=== PATIENT | male | born 1950 | race Caucasian/White ===

== ENCOUNTER → 2018-02-20 15:48 | Outpatient (CLI) | payer OTHER, SELFPAY ==
[2018-02-20 17:17] LABS: Calcium 9.6 mg/dL (8.4-10.2); Estimated Glomerular Filt Rate > 60.0 mL/min (>60); Glucose 87 mg/dL (80-110); HEMOLYSIS < 15 (0-50); Potassium 4.3 mmol/L (3.4-5.1); Sodium 140 mmol/L (137-145)
== END ==
PROVIDERS: Family Provider Internal Medicine; PCP Internal Medicine; Visit Provider Internal Medicine
DX: I10 Essential (primary) hypertension (principal); E29.1 Testicular hypofunction
CPT/HCPCS: 36415; 80048; 84403

== ENCOUNTER → 2018-04-23 08:03 | Outpatient (CLI) | payer OTHER, SELFPAY ==
[2018-04-23 10:28] LABS: Blood Urea Nitrogen 24 mg/dL (9-20); Calcium 9.8 mg/dL (8.4-10.2); Carbon Dioxide 28 mmol/L (22-32); Chloride 99 mmol/L (98-107); Estimated Glomerular Filt Rate > 60.0 mL/min (>60); Glucose 93 mg/dL (80-110); HEMOLYSIS < 15 (0-50); Potassium 4.5 mmol/L (3.4-5.1); Sodium 139 mmol/L (137-145)
== END ==
PROVIDERS: PCP Internal Medicine; Visit Provider Internal Medicine
DX: I10 Essential (primary) hypertension (principal)
CPT/HCPCS: 36415; 80048

== ENCOUNTER → 2018-06-05 09:57 | Outpatient (CLI) | payer OTHER, MEDICARE, SELFPAY ==
[2018-06-05 10:47] LABS: BUN Creatinine Ratio 28.3 (6-22); Blood Urea Nitrogen 34 mg/dL (9-20); Calcium 9.9 mg/dL (8.4-10.2); Carbon Dioxide 33 mmol/L (22-32); Chloride 101 mmol/L (98-107); Estimated Glomerular Filt Rate > 60.0 mL/min (>60); Glucose 95 mg/dL (80-110); HEMOLYSIS < 15 (0-50); Potassium 4.3 mmol/L (3.4-5.1); Sodium 144 mmol/L (137-145)
== END ==
PROVIDERS: PCP Internal Medicine; Visit Provider Internal Medicine
DX: I10 Essential (primary) hypertension (principal)
CPT/HCPCS: 36415; 80048

== ENCOUNTER → 2018-07-10 16:00 | Outpatient (CLI) | payer OTHER, MEDICARE, SELFPAY | PROVIDERS: Family Provider Internal Medicine; PCP Internal Medicine | DX: Z23 Encounter for immunization (principal) | CPT/HCPCS: 90471; 90662 ==

== ENCOUNTER → 2018-08-20 08:08 | Outpatient (CLI) | payer OTHER, SELFPAY ==
[2018-08-20 20:50] LABS: Aspartate Aminotransferase 39 IU/L (17-59); BUN Creatinine Ratio 24.5 (6-22); Blood Urea Nitrogen 27 mg/dL (9-20); Calcium 9.7 mg/dL (8.4-10.2); Carbon Dioxide 30 mmol/L (22-32); Chloride 99 mmol/L (98-107); Cholesterol 218 mg/dL (140-199); Estimated Glomerular Filt Rate > 60.0 mL/min (>60); Glucose 104 mg/dL (80-110); HDL Cholesterol 58 mg/dL (40-60); HEMOLYSIS < 15 (0-50); LDL Cholesterol Calculated 108 mg/dL (<100); Potassium 4.6 mmol/L (3.4-5.1); Sodium 141 mmol/L (137-145); Triglycerides 258 mg/dL (35-150); Uric Acid 8.2 mg/dL (3.5-8.5)
== END ==
PROVIDERS: Family Provider Internal Medicine; PCP Internal Medicine; Visit Provider Internal Medicine
DX: I10 Essential (primary) hypertension (principal); M10.9 Gout, unspecified; E78.00 Pure hypercholesterolemia, unspecified; E29.1 Testicular hypofunction
CPT/HCPCS: 36415; 80048; 80061; 84153; 84403; 84450; 84550

== ENCOUNTER → 2018-09-16 12:47 | Outpatient (CLI) | payer OTHER, SELFPAY ==
--- NOTE | 2018-09-16 | DI.MRI.S_ITS ---
PROCEDURE: MR LUMBAR SPINE WO CON INDICATIONS: LOW BACK PAIN TECHNIQUE: Noncontrast sagittal T1 spin echo and T2 fast echo, sagittal STIR, axial T1 and T2 fast spin echo through the lumbar spine. In cases with scoliosis, additional coronal T2 fast spin echo may be performed. COMPARISON: [facility], CR, XR LUMBAR SPINE 2 OR 3 VIEWS, 09/15/2018, 8:53. [facility] [place], CR, SPINE LUMB MIN 4VW, 08/17/2014, 9:29. [facility], MR, L-SPINE WITHOUT CONTRAST, 01/28/2010, 15:39. FINDINGS: Image quality: Excellent. Alignment and Curvature: Mild straightening of the normal lumbar lordosis. Trace retrolisthesis of L2 on L3, unchanged. Bone Marrow: Diffuse endplate degenerative signal changes, spurring and scattered small Schmorl's nodes involving inferior endplates of L1, L2, L3, L4 and L5 and and the superior endplates of L3 and L5. These findings appear new since prior study. However, no definite associated marrow edema. No acute vertebral body compression fractures. Spinal Cord: Conus medullaris terminates at the T12-L1 level. Visualized cord demonstrates normal signal and size. Paraspinous Soft Tissues: No paravertebral masses. There is diffuse progression of epidural lipomatosis from the level of L1-S1. L1-L2: Mild broad-based posterior disc bulge bilateral facet arthropathy, with mild dorsal epidural lipomatosis which is slightly increased since 01/28/10. Mild canal narrowing which demonstrates minimal progression. Mild partial effacement of the lateral recesses bilaterally which appear symmetric. Minimal bilateral foraminal narrowing, unchanged. L2-L3: Broad-based posterior disc bulge, bilateral facet arthropathy and ligamentum flavum hypertrophy. There is progressive dorsal epidural lipomatosis since the prior study with resultant moderate to severe canal narrowing which has also progressed since prior study. Moderate right and [id number] left foraminal narrowing, no interval change. L3-L4: Broad-based posterior disc bulge abuts arthropathy. Ligamentum flavum hypertrophy. Dorsal epidural lipomatosis present and there is moderate to severe canal narrowing, progressed since the prior study. Mildly asymmetric (left greater than right) partial effacement of both lateral recesses which appears stable to minimally progressed. Moderate left foraminal narrowing. Mild right foraminal stenosis, no interval change L4-L5: Broad-based posterior disc bulge, bilateral facet arthropathy and ligamentum flavum hypertrophy. There is also progressive dorsal epidural lipomatosis which has progressed since prior study. There is moderate canal narrowing, which is slightly worsened. Partial effacement of the lateral recesses which appears mildly asymmetric, right greater than left as before. Moderate left foraminal narrowing which is minimally progressed. Mild to moderate right foraminal stenosis which is unchanged L5-S1: Mild broad-based posterior disc bulge and bilateral facet arthropathy. There is circumferential epidural lipomatosis with severe narrowing of the central canal. There is also lipomatous effacement of the lateral recesses, a new finding. [id number] left and moderate right foraminal stenoses which appear unchanged IMPRESSION: Interval progression of multilevel lumbar disc degeneration and facet arthropathy since 01/28/10. Diffuse progressive central canal and bilateral subarticular narrowing, as specified above by spinal level, in large part related to increased epidural lipomatosis. Associated multilevel deformity of the cauda equina/nerve roots related to canal narrowing. Slight progression in left L4-L5 foraminal narrowing. Remaining bilateral foraminal stenoses appear grossly unchanged as above. Dictated by: Ren Villa M.D. on 09/16/2018 at 14:32 Approved by: Ren Vilal M.D. on 09/16/2018 at 15:17
== END ==
PROVIDERS: PCP Internal Medicine; Visit Provider Orthopaedic Surgery
DX: M54.5 Low back pain (principal); M51.36 Other intervertebral disc degeneration, lumbar region; M51.37 Other intervertebral disc degeneration, lumbosacral region; M47.816 Spondylosis without myelopathy or radiculopathy, lumbar region; M48.061 Spinal stenosis, lumbar region without neurogenic claudication; M48.07 Spinal stenosis, lumbosacral region
CPT/HCPCS: 72148

== ENCOUNTER → 2018-10-02 08:42 | Outpatient (CLI) | payer OTHER, SELFPAY ==
[2018-10-02 09:37] LABS: Add Manual Diff / Slide Review NO; Basophils Percent Auto 1.4 % (0-2); Eosinophils Percent Auto 2.6 % (2-4); Hematocrit 39.3 % (41-53); Hemoglobin 13.6 g/dL (13.5-17.5); Lymphocytes Percent Auto 28.7 % (25-40); Mean Corpuscular HGB Conc 34.5 % (30-36); Mean Corpuscular Hemoglobin 32.3 PG (26-34); Mean Corpuscular Volume 93.6 fL (80-100); Monocytes Percent Auto 10.7 % (3-14); Neutrophils Absolute Auto 2600 /uL (1500-7000); Neutrophils Percent Auto 56.6 % (50-75); Platelet Count 305 X10^3/uL (150-400); Red Cell Distribution Width 13.6 % (11.6-14.8); White Blood Cell Count 4.6 X10^3/uL (4.5-11.0)
[2018-10-02 09:47] LABS: Hemoglobin A1C% w Est Avg Glu 5.3 % (4.0-6.0)
[2018-10-02 10:57] LABS: Alanine Aminotransferase 39 IU/L (21-72); Albumin 4.6 g/dL (3.5-5.0); Albumin Globulin Ratio 1.5 (1.0-2.8); Alkaline Phosphatase 55 U/L (38-126); Aspartate Aminotransferase 38 IU/L (17-59); Bilirubin Total 1.1 mg/dL (0.2-1.3); Blood Urea Nitrogen 36 mg/dL (9-20); Calcium 9.6 mg/dL (8.4-10.2); Carbon Dioxide 30 mmol/L (22-32); Chloride 101 mmol/L (98-107); Cholesterol 254 mg/dL (140-199); Estimated Glomerular Filt Rate > 60.0 mL/min (>60); Glucose 110 mg/dL (80-110); HDL Cholesterol 50 mg/dL (40-60); HEMOLYSIS < 15 (0-50); Potassium 5.1 mmol/L (3.4-5.1); Sodium 145 mmol/L (137-145); Total Protein 7.6 g/dL (6.3-8.2); Triglycerides 469 mg/dL (35-150)
[2018-10-02 11:14] LABS: Free T3, Triiodothyronine Free 3.42 pg/mL (2.77-5.27); Free T4, Direct Thyroxine 0.97 ng/dL (0.78-2.19)
[2018-10-02 11:27] LABS: Prostate Specific Antigen Scrn 1.07 ng/mL (0.1-4.0)
[2018-10-02 11:28] LABS: Thyroid Stimulating Hormone 2.59 uIU/mL (0.47-4.68)
[2018-10-02 11:31] LABS: Ferritin 32.8 ng/mL (17.9-464)
[2018-10-02 13:30] LABS: Creatine Kinase 125 U/L (55-170)
[2018-10-02 13:41] LABS: CKMB % Relative Index 2.7 % (1.5-5.0); Creatine Kinase MB 3.39 ng/mL (<2.37)
[2018-10-03 14:29] LABS: Homocysteine 8.5 umol/L (< 11.4)
== END ==
PROVIDERS: PCP Internal Medicine; Visit Provider Naturopath
DX: Z82.49 Family history of ischemic heart disease and other diseases of the circulatory system (principal)
CPT/HCPCS: 36415; 80053; 80061; 82550; 82553; 82728; 83036; 83090; 84439; 84443; 84481; 85025; G0103

== ENCOUNTER 2018-12-30 14:44 | Outpatient (CLI) | payer OTHER, SELFPAY ==
[2018-12-30] VITALS (9 sets, daily range): BP systolic 113–187; BP diastolic 76–96; PULSE 61–69; RESP 16–18; TEMP 36.2; O2SAT 95–100
--- NOTE | 2018-12-30 14:47 | DI.RAD.S_ITS ---
PROCEDURE: PAIN L/S FACET INJ/BLK 1ST TOO COMPARISON: None. INDICATIONS: SPONDYLOSIS FINDINGS: There are bilateral L4-5 and L5-S1 needle tip localizations at the facet joints at each of these levels 4 facet joint injection. IMPRESSION: Successful lower lumbar and lumbosacral junction bilateral facet needle tip localizations for facet injections at each of these 4 levels. Dictated by: Phong Solis M.D. on 12/30/2018 at 16:33 Approved by: Phong Solis M.D. on 12/30/2018 at 16:34
[2018-12-30] MEDS: MIDAZOLAM 5 MG/5 ML VIAL IV (15:31)
[2018-12-30] MEDS: fentaNYL 100 MCG/2 ML INJ 50 MCG IV (15:32)
[2018-12-30] MEDS: BETAMETHASONE 30 MG/5 ML MDV 12 MG INJ (15:36)
[2018-12-30] MEDS: LIDOCAINE 1% 20 ML INJ 10 ML INJ (15:36)
[2018-12-30] MEDS: IOPAMIDOL 15 ML VIAL 3 ML INJ (15:36)
[2018-12-30] MEDS: BUPIVACAINE 0.5% (PF) VIAL 2 ML INJ (15:36)
--- NOTE | 2018-12-30 15:41 | PC.NURSE ---
ASSISTING PT OFF TABLE AND TRANSPORTING TO POST PROC AREA IN STABLE CONDITION
--- NOTE | 2018-12-30 15:48 | P.PCN_ITS ---
Procedures Date/Time Date of procedure: 12/30/18 Time of procedure: 15:46 General Procedure description: PREOP DIAGNOSIS 1. FACET ARTHROPATHY 2. AXIAL LBP 3. MULTILEVEL DDD POST OP DIAGNOSIS 1. FACET ARTHROPATHY 2. AXIAL LBP 3. MULTILEVEL DDD PROCEDURES 1. FLUORSCOPICALLY GUIDED CONTRAST CONTROLLED FACET JOINT INJECTIONS BILATERAL L4/5, L5/S1 PHYSICIAN: Primitivo Lynn, DO INDICATIONS Jose De Jesus is referred by Dr. Bright for treatment of Axial LBP FINDINGS Multilevel Facet Arthropathy with Clinically significant axial LBP DESCRIPTION OF PROCEDURE Fluoroscopically guided, contrast-controlled bilateral L4/5, L5/S1 facet joint injections. Following denial of allergy and review of potential side effects and complications, including, but not necessarily limited to, infection, allergic reaction, local tissue breakdown, stroke, temporary or permanent nerve injury, paralysis, and possible , the patient indicated that the patient understood and agreed to proceed. An informed consent document was signed by the patient, witnessed by a nurse, and placed in the patient's chart. Additionally, other treatment options including medications, modalities, and physical therapy were reviewed with the patient. After review of previous anaesthesic history and IV conscious sedation the patient was deemed safe to proceed with todays procedure with IV conscious sedation as ASA class II designation. Safety time-out was performed to confirm patient ID, procedure to be performed and site of procedure. IV sedation was accomplished with a combination of 5mg of Versed and 50mcg Fentanyl was administered by the RN after DO order, titrated to patient comfort during the course of the procedure while the patient remained responsive to all verbal commands In the prone position, following sterile prep and drape of the lumbar region, the posterior aspect of the L4/5, L5/S1 facet joints were identified fluoroscopically. The skin was anesthetized via a 25-gauge 1.5-inch needle with 1% lidocaine solution into the corresponding facet joints. At this point, a 22- gauge 3.5-inch spinal needle was atraumatically introduced and advanced under fluoroscopic guidance into the corresponding facet joints. Following negative aspiration, injections of approximately 0.2-cc of Isovue 200 confirmed interarticular placement without vascular uptake. The identical procedure was then performed at the L4/5, L5/S1 facet joints on the left. Radiological data, including multiple fluoroscopic views of the lumbosacral spine, reveal a spinal needle at the L4/5, L5/S1 facet joints bilaterally. Subsequent views show flow of contrast material both superiorly and inferiorly within the joint space without vascular or intrathecal uptake. At this point, a total of 0.5 cc including a mixture of 0.25cc Marcaine and 0.25cc betamethasone was injected without complication into each of the corresponding facet joints. The patient tolerated the procedure well without signs or symptoms of complications prior to transfer to the recovery area continued monitoring without incident. The patient was then transferred to the recovery area where they were observed for an appropriate period of time after the injection. The patient reported a VAS score of 7 prior to the procedure and a post- procedure VAS of 0. Total Fluoroscopy Time: 20.3 seconds Total Conscious Sedation Time: 24min POST OP INSTRUCTIONS The patient was provided a Pain Log to continue to record their response to the target-specific procedure prior to follow-up visit with their referring physician. Additionally, specific post-injection care instructions and a contact number to our office were provided if concerns arise regarding possible complications associated with the procedure are suspected. Primitivo Lynn DO Complications: none
--- NOTE | 2018-12-30 15:58 | PC.NURSE ---
Pt returned from procedure a little drowsy but alert, able to move from w/c to chair with minimal assist. Resumed monitoring from Olesya RICHARD.
--- NOTE | 2018-12-31 16:44 | PC.NURSE ---
Follow up post procedure call made. Patient reports feeling great. He denied any complaints and reported it was a good experience.
== END 2018-12-30 16:51 ==
LOC: RAD 14:47
PROVIDERS: PCP Internal Medicine; Visit Provider Physical Medicine & Rehabilitation
DX: M47.817 Spondylosis without myelopathy or radiculopathy, lumbosacral region (principal); M47.816 Spondylosis without myelopathy or radiculopathy, lumbar region; M51.37 Other intervertebral disc degeneration, lumbosacral region; M51.36 Other intervertebral disc degeneration, lumbar region; M54.5 Low back pain; M48.061 Spinal stenosis, lumbar region without neurogenic claudication
CPT/HCPCS: 64493; 64494; 99152; J0702; J2250; J3010

== ENCOUNTER → 2019-07-02 09:05 | Outpatient (CLI) | payer MEDICARE, OTHER, SELFPAY ==
[2019-07-02 10:07] LABS: Add Manual Diff / Slide Review NO; Basophils Absolute Auto 100 /uL (0-100); Basophils Percent Auto 1.1 % (0-2); Eosinophils Absolute Auto 200 /uL (0-450); Eosinophils Percent Auto 2.7 % (2-4); Hematocrit 44.4 % (41-53); Hemoglobin 15.1 g/dL (13.5-17.5); Lymphocytes Absolute Auto 1600 /uL (1100-4500); Lymphocytes Percent Auto 29.1 % (25-40); Mean Corpuscular HGB Conc 33.9 % (30-36); Mean Corpuscular Hemoglobin 32.4 PG (26-34); Mean Corpuscular Volume 95.4 fL (80-100); Monocytes Absolute Auto 600 /uL (0-900); Monocytes Percent Auto 10.5 % (3-14); Neutrophils Absolute Auto 3200 /uL (1500-7000); Neutrophils Percent Auto 56.6 % (50-75); Platelet Count 271 X10^3/uL (150-400); Red Blood Cell Count 4.66 X10^6/uL (4.5-5.9); Red Cell Distribution Width 12.9 % (11.6-14.8); White Blood Cell Count 5.7 X10^3/uL (4.5-11.0)
[2019-07-02 10:19] LABS: Carbon Dioxide 28 mmol/L (22-32); Chloride 99 mmol/L (98-107); HEMOLYSIS 27 (0-50); Potassium 4.8 mmol/L (3.4-5.1); Sodium 140 mmol/L (137-145)
== END ==
PROVIDERS: PCP Internal Medicine; Visit Provider Orthopaedic Surgery
DX: M16.10 Unilateral primary osteoarthritis, unspecified hip (principal); Z01.818 Encounter for other preprocedural examination; Z01.812 Encounter for preprocedural laboratory examination
CPT/HCPCS: 36415; 80051; 85025; 93005; 93010

== ENCOUNTER 2019-07-27 07:45 | Inpatient (IN) | payer MEDICARE, OTHER, SELFPAY ==
[2019-07-24 07:33] VITALS: BMI 29.6
[2019-07-27] VITALS (14 sets, daily range): BP systolic 99–168; BP diastolic 50–98; PULSE 63–91; RESP 10–20; TEMP 35.8–37.2; O2SAT 94–100; BMI 29.6
--- NOTE | 2019-07-27 | PATH_ITS ---
[facility] Accession Number: [id number] . 01 Material submitted: . hip - RIGHT HIP/BURSA LOOSE BODY . 02 Diagnosis: Right Hip/Bursa, Loose Body, Removal: Encapsulated fat necrosis. No evidence of neoplasia. MRV 07/29/2019 1320 Local . 02 Electronically signed: . Shaye Law MD, Pathologist NPI- [id number] . 01 Gross description: . Received in formalin, labeled loose body bursa right hip, is a ochoa-white firm rubbery nodule (2.5 x 1.7 x 1.0 cm) with a ochoa-yellow soft oily cut surface. The exterior is inked blue. Mortgage Protection Specialist serial sections submitted in cassette A1. ([id number]) /MRV 07/28/2019 1534 Local . 02 Pathologist provided ICD-10: M16.11 . 02 CPT . 905173 Performed at: 01 [facility] [address], [place], [place] [id number] MD Shabbir Gardiner MD Phone: [phone] Performed at: 02 [facility] [address] [place], [place] [id number] MD Shaye Law MD Phone: [phone]
--- NOTE | 2019-07-27 06:00 | DI.RAD.S_ITS ---
PROCEDURE: XR PELVIS 1-2V INDICATIONS: post op films TECHNIQUE: 1 view of the lower pelvis acquired. COMPARISON: [facility] [place] [facility], CR, XR PELVIS WITH LATERAL HIP RIGHT, 06/17/2019, 14:51. FINDINGS: Bones: Patient is status post total right hip arthroplasty, with hardware components in expected positions. The hip joint appears congruent. The visualized bony structures appear intact. Soft tissues: Overlying postoperative changes are noted. No suspicious soft tissue densities. IMPRESSION: Status post right total hip arthroplasty without hardware complication. Dictated by: Isauro Chisholm M.D. on 07/27/2019 at 12:50 Approved by: Isauro Chisholm M.D. on 07/27/2019 at 12:51
--- NOTE | 2019-07-27 07:50 | PM.PREOP ---
Pre-operative Note Interval Note History & Physical reviewed/Exam performed by Physician: Yes Changes to H&P: No
[2019-07-27] MEDS: PREGABALIN 75 MG CAPSULE PO (08:35)
[2019-07-27] MEDS: ACETAMINOPHEN 325 MG TABLET 975 MG PO ×3 (08:35→20:26)
[2019-07-27] MEDS: MELOXICAM 7.5 MG TABLET 15 MG PO (08:36)
[2019-07-27] MEDS: LACTATED RINGERS 1,000 ML 42 ML IV ×2 (08:39→11:06)
[2019-07-27] MEDS: CEFAZOLIN 2 GM/100 ML FROZ.PIGGY IV ×2 (09:52→18:26)
[2019-07-27] MEDS: TRANEXAMIC ACID 1,000 MG VIAL 1000 MG INJ ×2 (10:10→11:05)
--- NOTE | 2019-07-27 10:32 | SUR.OPER ---
Lateral on padded OR bed. Gel axillary roll. Arms secured on padded armboard with pillow supporting top arm. Padded hip positioner braces x4 - anterior and posterior chest and pelvis. Additional gel pad used anterior pelvis. Gel pad under bottom leg from knee to foot and secured with tape over sheet.
[2019-07-27] MEDS: ROPIVACAINE 0.5% PF 5 MG/ML 20ML VIAL 60 ML INJ (10:39)
[2019-07-27] MEDS: MORPHINE 4 MG/ML INJ INJ (10:40)
[2019-07-27] MEDS: KETOROLAC 30 MG/ML VIAL IV (10:40)
--- NOTE | 2019-07-27 11:58 | P.OP_ITS ---
Operative Date/Time/Diagnoses Date of procedure: 07/27/19 Time of procedure: 11:58 Pre-op diagnosis: Right hip degenerative joint disease Post-op diagnosis: same Procedure & Clinicians Procedure: Right total hip arthroplasty (CPT code 41277 with recruitment and outreach assistant) Indications: Patient is an 69-year-old male with severe right hip DJD. The patient has pain with activities and at rest, limited ambulation and activity tolerance, difficulties with ADLs, and failure of conservative treatment. We have discussed the nature of condition, treatment options, risks and benefits, and patient elects to proceed with total hip arthroplasty and gives informed consent. Surgeon: Ruben Fatima Full Stack Java Developer: Tam Chahal Anesthesia Type: General and Spinal Operative Notes Closure Type: primary Specimen(s): none sent Prosthetic devices, grafts, tissues, transplants, or devices: Acetabulum: Ingram and Nephew R3 acetabular component size 54 mm Femoral component: Ingram and Nephew Anthology stem size 8 with standard offset Femoral head: 36 mm + 0 Oxinium Estimated Blood Loss (mL): 100 Procedure in detail: After satisfaction induction of anesthetic, and administration of IV antibiotics, the patient was positioned in the lateral decubitus position with all bony prominences well padded and pelvic position secured using a hip biometric fingerprinting technician positioning device. Right hip and lower extremity prepped and draped in the usual sterile fashion, 1st dose of intravenous tranexamic acid was administered, then a longitudinal incision was created centered over the greater trochanter and carried sharply through the skin and subcutaneous tissues down to the fascia bro which was divided longitudinally and retracted with a Charnley retractor. Upon entry into the trochanteric bursal space and approximately 1 x 2 cm ovoid soft tissue mass was encountered. This was not attached to any surrounding tissues and was thus removed and sent to pathology. External rotators visualized, cut, tagged, and retracted posteriorly, then the capsule was cut in a T-type fashion with the corners tagged and retracted. Hip was dislocated and femoral neck cut made according to preoperative templating. Acetabular retractors then placed, and the acetabular labrum and osteophytes were excised. The acetabulum was then sequentially reamed to 53 mm with an excellent circumferential ream and fit with the trial. The trial component was removed and a permanent size 54 mm Ingram and Nephew R3 acetabular component was selected, positioned, and impacted with satisfactory position and fixation achieved. Permanent liner was then inserted with the elevated lip directed posteriorly. Soft tissue then removed off the lateral femoral neck in the lateral neck was entered using a box osteotome. T-handled reamers placed down the canal followed by sequential broaching to 8 with the final broach left in place for trial reduction which demonstrated excellent leg length, range of motion, and stability characteristics with a 36 mm +0 trial ball. The trial and broach were removed, and a permanent size 8 Ingram and Nephew Anthology stem was selected and inserted with excellent position and fixation achieved. Another trial reduction yielded the above characteristics so the trial ball was exchanged for a permanent 36 mm +0 Oxinium ball. The hip was irrigated and reduced and excellent leg length range of motion and stability characteristics were achieved and maintained. Periarticular tissues were infiltrated with ropivacaine, morphine, and Toradol. The hip was copiously irrigated, and the capsule repaired with #2 Ethibond, and the piriformis was repaired back to the greater trochanter with the same. Fascia bro closed with interrupted #1 Ethibond sutures, and the subcutaneous tissues were closed in 2 layers of 0 Vicryl and 2 0 Vicryl. Skin was closed with ellie and sterile dressings applied. Second dose of tranexamic acid was administered intravenously, and the anesthetic was terminated. Complications: none Post-operative Condition: stable Disposition: PACU Plan for aftercare: Patient will be admitted to the acute care tabor, and anticipate discharge on postop day 1 with follow-up in office in 10-14 days. Outpatient physical therapy will be arranged and patient will continue to observe posterior hip precautions. Patient will continue use of postoperative Lovenox for 10 days postop.
[2019-07-27] MEDS: LACTATED RINGERS 1,000 ML 125 ML IV ×2 (13:08→20:32)
--- NOTE | 2019-07-27 13:19 | PC.ADMIT ---
[email or web address] [facility] Admission Note: The patient,Jose De Jesus Richard,69 y/o, was given written information regarding hospital policies, unit procedures and contact persons. Patient's smoking status: Never smoker. Vital Signs - 8 hr 07/27/19 08:23 07/27/19 11:27 07/27/19 11:32 Temperature 97.1 F L 98.9 F Pulse Rate 78 69 67 Respiratory Rate 16 12 10 L Blood Pressure 168/84 H 99/50 L 137/84 Pulse Oximetry 96 97 97 07/27/19 11:37 07/27/19 11:42 07/27/19 11:47 Temperature Pulse Rate 66 70 69 Respiratory Rate 13 19 20 Blood Pressure 137/84 131/77 145/85 H Pulse Oximetry 97 99 97 07/27/19 12:00 07/27/19 12:30 07/27/19 13:00 Temperature 96.5 F L 97.8 F 97.9 F Pulse Rate 63 91 H 64 Respiratory Rate 16 16 16 Blood Pressure 132/98 H 123/78 119/73 Pulse Oximetry 100 100 100 POST-OP ADMIT: PATIENT AWAKE, ALERT, CONVERSANT. SAT 97-100% ON RA. DESATS WHEN ASLEEP IN PACU. WILL MONITOR AND WEAN OFF O2. CONT PULSE OX IN PLACE. SCD'S ON. VSS. BULKY SURGICAL DRSG TO RIGHT HIP CDI. BL PPP. NOW ABLE TO WIGGLE TOES, BUT STILL NO SENSATION BELOW HIP LEVEL. S/P DURAMORPH SPINAL ANESTHESIA. CALL LIGHT IN REACH, INSTRUCTED TO CALL FOR NEEDS. ATE LUNCH, NO N/V. PROVIDED URINAL.
[2019-07-27] MEDS: OXYCODONE/ACETAMINOPHEN 5/325 TABLET 1 TAB PO ×2 (14:38→20:26)
--- NOTE | 2019-07-27 16:37 | PC.NURSE ---
Addendum entered by Pia Dao R.N. 07/27/19 22:35: Patient to remain without dizziness or nausea. Tolerating fluid intake. VSS and afebrile. Placed on O2 at 1L via NC due to desaturation while asleep to 88-89%. Skin warm, pink, and dry. Addendum entered by Pia Dao R.N. 07/27/19 18:57: 1800 Patient sitting up in chair, noted to become clammy, slight dizziness and nausea. BG check, 146 mg/dl and VSS. Zofran admin IV as ordered. Upon returning to bed, patient states symptoms resolved. VSS, warm, pink and continue on RA. IVF infusing and call light within reach. Will cont. to monitor patient closely. Original Note: Angeline shift note: Awake, alert, and pleasant. Pain controlled with Percocet as ordered. States pain 2/10, which is tolerable for patient. Dr. Fatima and Physical Therapy at bedside. CMS intact to LLE. SCDs in place. Dressing to Left hip, CDI. O2 sat 96% on RA. Discussed posterior hip precautions, IS at bedside, call light within reach.
--- NOTE | 2019-07-27 17:18 | PT.IIE ---
Current Diagnoses Unilateral primary osteoarthritis, right hip (07/27/19) Surgery Performed Operation Date: 07/27/19 09:45 Actual Procedures p Total Hip Arthroplasty(Right) - Ruben Fatima MD Surgical History (Last Updated 07/24/19 @ 07:47 by Anuja Tovar, RN) H/O vasectomy (Acute) History of arthroplasty of right knee (Acute 07/10/16) Hx of cholecystectomy (Acute) S/P surgical manipulation of knee joint (Acute 10/12/16) S/P trigger finger release (Acute) Status post knee surgery Status post laparoscopic cholecystectomy Medical History (Last Updated 07/24/19 @ 07:41 by Anuja Tovar RN) Clavicle fracture (Acute) HLD (hyperlipidemia) (Acute) Paroxysmal A-fib (Acute) Physical Therapy Inpatient Evaluation/Re-Eval M1 PT/OT-IP Prior Functional Status Start: 07/27/19 16:58 Freq: NEEDED Status: Active Protocol: Document 07/27/19 16:59 IJS (Rec: 07/27/19 17:17 IJS [id number]) Medical Review Prior Functional Status Medical History Reviewed Yes Communication Amharic Mobility and Gait Indpendent without assistive device Activities of Daily Living and IADL's Independent Prior Functional Level (Other details) Active Social History Household Members significant other Living Arrangements House Number of Floors (Floors) Two Floors Number of Stairs To Enter/Railing? 2 steps into home with rail and 10 steps upstairs with rail Home Environment Standard Height Toilet Home Equipment Front Wheel Walker,Straight Cane Employment Status Retired M2 PT-IP Current Condition Start: 07/27/19 16:58 Freq: NEEDED Status: Active Protocol: Document 07/27/19 16:59 IJS (Rec: 07/27/19 17:17 IJS [id number]) Physical Therapy Current Condition Current Condition Evaluation Date 07/27/19 Treatment Diagnosis Right MARY ANNE - Posterior Onset Date 07/27/19 Precautions Posterior Hip Precautions No Hip Flexion > 90 degrees,No Hip Internal Rotation,No Hip Adduction Weight Bearing Status Weight Bearing Status Weight Bear as Tolerated M3 PT-IP Subjective Start: 07/27/19 16:58 Freq: NEEDED Status: Active Protocol: Document 07/27/19 16:59 IJS (Rec: 07/27/19 17:17 IJS [id number]) Subjective Physical Therapy Visit Type Type Initial Evaluation Visit Start Time 16:30 Visit Stop Time 16:53 Total Visit Minutes 23 Physical Therapy Visit Comments Patient Comments What kind of aerobic exercise machine can I use. Discussed precautions and not returning to the gym too quickly. Patient Goals Be able to golf and play tennis again without pain Therapy Pain Assessment Pain When Pain Assessed During Mobility Pain Present Pain Present Denied Pain M4 PT-IP Mobility and Gait Start: 07/27/19 16:58 Freq: NEEDED Status: Active Protocol: Document 07/27/19 16:59 IJS (Rec: 07/27/19 17:17 IJS [id number]) PT-Bed Mobility Assessment Supine to Sit Supine to Sit Contact Guard Assistance,1 Person Assistance Scooting Scooting to Edge of Bed Standby Assistance PT-Transfer Assessment Sit to and From Stand Sit to and from Stand Contact Guard Assistance, Minimal Assistance Equipment Transfer Assistive Device Gait Belt,Front Wheeled Walker Orthotic/Prosthetic Devices or Brace: No Transfers Transfer Destination Chair Transfer Technique Stand Step Pivot Transfer Ability Level of Assist Contact Guard Assistance Comments Mobility Comments Out of bed to his right side. Gait Assessment Gait Gait Assistance Required: Contact Guard Assist Distance (Feet) 40 Able to Maintain Weight Bearing Status Yes During Gait Assistive Devices Assistive Device Gait Belt,Front Wheeled Walker Orthotic/Prosthetic Devices or Brace: No Gait Deviations General Gait Pattern Step-to Gait Factors Limiting Gait Function Factors Limiting Gait Function Pain,Poor Balance Comments Gait Comments One slight loss of balance when first turning around in the room toward his left side. Stair Climbing Assessment Comments Stair Climbing Comments Is anxious to practice stairs tomorrow, discussed step sequencing. PT-Balance Assessment Sitting Balance and Reactions Static Sitting Balance Ability Normal Dynamic Sitting Balance Ability Normal Standing Balance and Reactions Static Standing Balance Ability Good Dynamic Standing Balance Ability Good M5 PT-IP Objective Assessments Start: 07/27/19 16:58 Freq: NEEDED Status: Active Protocol: Document 07/27/19 16:59 IJS (Rec: 07/27/19 17:17 IJS [id number]) Orientation Orientation/Cognition Level of Alertness Alert Orientation Name,Age,Birthday,Month,Date, Year,Day of Week,Place, Situation Language Function Ability No Deficits Noted Memory Description No Deficits Noted Gross Range of Motion Upper Extremity ROM Assessment Within Functional Limits Lower Extremity ROM Assessment Right Impaired Impairments Posterior hip precaustions Strength Upper Extremity Strength Assessment Within Functional Limits Lower Extremity Strength Assessment Within Functional Limits Comments Strength Comments Good quadset and able to actively do heel slides, short arch quad and abduction. Coordination Assessment Gross Coordination Gross Coordination WNL Sensation Assessment Sensation Gross Sensation WNL Comments Sensation Comments Reports all feeling back in his leg. Muscle Tone Muscle Tone WNL Yes M6 PT-IP Treatment Start: 07/27/19 16:58 Freq: NEEDED Status: Active Protocol: Document 07/27/19 16:59 IJS (Rec: 07/27/19 17:17 IJS [id number]) Physical Therapy Treatment Exercises Exercises Ankle Pumps,Quad Sets,Heel Slides,Short Arc Quads Education Education Provided Precautions,Weight Bearing Status,Post-Op Packet,Safety M7 PT-IP Assessment and Plan Start: 07/27/19 16:58 Freq: NEEDED Status: Active Protocol: Document 07/27/19 16:59 IJS (Rec: 07/27/19 17:17 IJS [id number]) PT Summary Assessment and Plan Potential Rehabilitation Potential Excellent Status of Condition at Evaluation Stable Summary Impairments Pain,ROM,Balance Assessment Summary Day of surgey right MARY ANNE tolerated activity well anticipate will do fine with stair training tomorrow and plans to return home in the early afternoon. Vitals stable with 02 sat 96% and HR 70bpm after gait/mobility. Goals Bed Mobility Goal Standby Assistance Transfer Goal Standby Assistance Gait Goal Standby Assistance Gait Distance 150 Other Goals Safe for up/down stairs with rail. His significant other is capible and able to assist if needed. Days to Meet Goals 2 Frequency of Treatment Frequency Of Treatment Twice a Day Treatment Plan Physical Therapy Treatment Plan Bed Mobility Training,Transfer Training,Gait Training, Therapeutic Exercise,Balance Retraining,Post Op Education, Discharge Planning,Hot or Cold Pack Other Recommendations and Next Treatment Progress with stair training, Focus caregiver training as needed. she is going to bring in his walker tomorrow for inspection , sizing. Recommendations To Nursing Amount of Assist Needed 1 Person Assist Discharge Recommendations PT Discharge Recommendations Home with Assistance, Outpatient PT
[2019-07-27] MEDS: ONDANSETRON 4 MG/2 ML INJ IV (17:34)
[2019-07-27] MEDS: ASPIRIN EC 81 MG TABLET PO (20:26)
[2019-07-27] MEDS: hydrOXYzine pamoate 25 MG CAPSULE PO (20:26)
[2019-07-28] MEDS: HYDROCODONE/ACET 5/325 TABLET 1 TAB PO (00:34)
[2019-07-28 00:38] VITALS: BP 162/94; PULSE 72; RESP 16; TEMP 36.6; O2SAT 100
[2019-07-28] MEDS: CEFAZOLIN 2 GM/100 ML FROZ.PIGGY IV (02:01)
--- NOTE | 2019-07-28 03:46 | PC.NURSE ---
Pt VSS, lung sounds clear bilaterally. Pt has 5/10 pain, medicated w/ [place] 5/325 Q4. Pt desats while sleeping. 1 liter oxygen applied while sleeping O2 sats 99%. Pt CMS intact, dressing is clean/dry and intact. IS encouraged, SCD's applied. Call light within reach.
[2019-07-28] MEDS: hydrOXYzine pamoate 25 MG CAPSULE PO (05:00)
[2019-07-28] MEDS: OXYCODONE/ACETAMINOPHEN 5/325 TABLET 1 TAB PO ×3 (05:00→12:35)
[2019-07-28 05:22] VITALS: BP 150/74; PULSE 66; RESP 16; TEMP 36.4; O2SAT 98
[2019-07-28 05:41] LABS: Hematocrit 36.6 % (41-53); Hemoglobin 12.3 g/dL (13.5-17.5)
[2019-07-28 07:50] VITALS: BP 154/83; PULSE 73; RESP 16; TEMP 36.5
--- NOTE | 2019-07-28 07:56 | PM.PNPO.1 ---
Subjective Subjective Date Patient Seen: 07/28/19 Time Patient Seen: 07:57 Interval history: Pain is moderate. Denies fever chills. No nausea vomiting. Up walking in the room yesterday. He was able to urinate on his own. Patient has two steps in his house. He does have assistance at home. Exam Vital Signs (past 8 hours): - 07/28/19 00:38 07/28/19 05:22 Temperature 97.8 F 97.6 F Pulse Rate 72 66 Respiratory Rate 16 16 Blood Pressure 162/94 H 150/74 H Pulse Oximetry 100 98 Oxygen Delivery Method Room Air Oxygen Flow Rate 0 Narrative Exam Narrative: 69-year-old male resting comfortably in bed in no apparent distress. Right hip dressing is clean, dry and intact. Motor function is intact distal bilateral lower extremities. Sensation grossly intact to light touch bilateral lower extremities both legs are warm and dry. SCDs are on and functioning. Objective Labs Result Diagrams: 07/28/19 05:17 Labs: Laboratory Results - last 24 hr 07/28/19 05:17 Hgb 12.3 L Hct 36.6 L Assessment & Plan Post-op Postoperative Procedures: Procedures Operation Date: 07/27/19 09:45 Actual Procedures Side Surgeon p Total Hip Arthroplasty Right Ruben Fatima MD Postop day 1 status post right total hip arthroplasty. Mobilize with physical therapy. He will work on steps this morning. If the patient progresses as expected likely discharge home this afternoon.
[2019-07-28] MEDS: IRBESARTAN 150 MG TABLET 300 MG PO (08:30)
[2019-07-28] MEDS: BISOPROLOL 5 MG TABLET 10 MG PO (08:30)
[2019-07-28] MEDS: hydroCHLOROthiazide 12.5 MG CAPSULE PO (08:31)
[2019-07-28] MEDS: NAPROXEN 250 MG TABLET PO (08:31)
[2019-07-28] MEDS: ASPIRIN EC 81 MG TABLET PO (08:32)
[2019-07-28] MEDS: ENOXAPARIN 40 MG/0.4 ML SYRINGE SUBCUT (09:31)
[2019-07-28] MEDS: INFLUENZA VACCINE 0.5 ML SYRINGE IM (09:31)
--- NOTE | 2019-07-28 10:39 | PT.IPTN ---
Current Diagnoses Unilateral primary osteoarthritis, right hip (07/27/19) Surgery Performed Operation Date: 07/27/19 09:45 Actual Procedures p Total Hip Arthroplasty(Right) - Ruben Fatima MD Physical Therapy Treatment Note M2 PT-IP Current Condition Start: 07/27/19 16:58 Freq: NEEDED Status: Active Protocol: Document 07/27/19 16:59 IJS (Rec: 07/27/19 17:17 IJS [id number]) Physical Therapy Current Condition Current Condition Evaluation Date 07/27/19 Treatment Diagnosis Right MARY ANNE - Posterior Onset Date 07/27/19 Precautions Posterior Hip Precautions No Hip Flexion > 90 degrees,No Hip Internal Rotation,No Hip Adduction Weight Bearing Status Weight Bearing Status Weight Bear as Tolerated M3 PT-IP Subjective Start: 07/27/19 16:58 Freq: NEEDED Status: Active Protocol: Document 07/28/19 10:22 AW (Rec: 07/28/19 10:39 AW [id number]) Subjective Physical Therapy Visit Type Type Treatment Note Visit Start Time 09:48 Visit Stop Time 10:15 Total Visit Minutes 27 Number of SAFETY INSTRUCTOR Visits 0 Physical Therapy Visit Comments Patient Comments I need to do stairs so I can go home Therapy Pain Assessment Pain When Pain Assessed During Mobility Pain Present Pain Present Pain Reported Location Right Hip Intensity 6 Scale Used 1/10 at rest; 6/10 with mobility Pain Management Techniques Apply Cold,Re-positioning, Timing of Activity with Medications M4 PT-IP Mobility and Gait Start: 07/27/19 16:58 Freq: NEEDED Status: Active Protocol: Document 07/28/19 10:22 AW (Rec: 07/28/19 10:39 AW [id number]) PT-Bed Mobility Assessment Supine to Sit Supine to Sit Contact Guard Assistance Scooting Scooting to Edge of Bed Standby Assistance PT-Transfer Assessment Sit to and From Stand Sit to and from Stand Standby Assistance Equipment Orthotic/Prosthetic Devices or Brace: No Transfers Transfer Destination Chair,Bedside Commode Transfer Technique pt ambulated with FWW Transfer Ability Level of Assist Standby Assistance Comments Mobility Comments Pt required decreased level of assist to complete sit to stand and transfers to BSC and chair. Verbal cues required to avoid leaning forward during transfer/attention to hip precautions. Verbal cues required to slow down, think before standing. Gait Assessment Gait Gait Assistance Required: Standby Assistance,Contact Guard Assist Distance (Feet) 200 Able to Maintain Weight Bearing Status Yes During Gait Assistive Devices Assistive Device Gait Belt,Front Wheeled Walker Orthotic/Prosthetic Devices or Brace: No Gait Deviations General Gait Pattern Antalgic,Decreased Stride Length,Decreased Feet Clearance Factors Limiting Gait Function Factors Limiting Gait Function Decreased Strength,Pain Comments Gait Comments Pt has increased pain with mobility today after block has worn off, but managed to ambulate using FWW CGA and SBA with improved swing-through bilaterally. Stair Climbing Assessment Evaluation Level of Assist On Stairs Standby Assistance,Contact Guard Assistance Devices Stair Climbing Assistive Devices Left Railing,Right Railing Technique/Endurance Stair Climbing Direction Ascend and Descend Stair Climbing Technique Step to Step Number of Steps Climbed 3 Stair Climbing Set # Repetitions (reps) 2 Comments Stair Climbing Comments First set of stairs completed using bilateral rails SBA. Second set completed using only left rail (ascending) CGA . Pt and significant other report the stairs are wide enough for SO to be able to provide EMERGENCY ROOM PHYSICIAN ASSISTANT on the right if needed. M5 PT-IP Objective Assessments Start: 07/27/19 16:58 Freq: NEEDED Status: Active Protocol: Document 07/27/19 16:59 IJS (Rec: 07/27/19 17:17 IJS [id number]) Orientation Orientation/Cognition Level of Alertness Alert Orientation Name,Age,Birthday,Month,Date, Year,Day of Week,Place, Situation Language Function Ability No Deficits Noted Memory Description No Deficits Noted Gross Range of Motion Upper Extremity ROM Assessment Within Functional Limits Lower Extremity ROM Assessment Right Impaired Impairments Posterior hip precaustions Strength Upper Extremity Strength Assessment Within Functional Limits Lower Extremity Strength Assessment Within Functional Limits Comments Strength Comments Good quadset and able to actively do heel slides, short arch quad and abduction. Coordination Assessment Gross Coordination Gross Coordination WNL Sensation Assessment Sensation Gross Sensation WNL Comments Sensation Comments Reports all feeling back in his leg. Muscle Tone Muscle Tone WNL Yes M6 PT-IP Treatment Start: 07/27/19 16:58 Freq: NEEDED Status: Active Protocol: Document 07/28/19 10:22 AW (Rec: 07/28/19 10:39 AW [id number]) Physical Therapy Treatment Exercises Exercises Ankle Pumps,Gluteal Sets,Quad Sets,Heel Slides Education Education Provided Precautions,Weight Bearing Status,Safety Other Treatments Other Treatment Performed Discussed strategies for turning in order to maintain hip precautions - including preferentially turning to the left or using small shuffling steps if turning to the right can not be avoided. Also sized pt's own walker. M7 PT-IP Assessment and Plan Start: 07/27/19 16:58 Freq: NEEDED Status: Active Protocol: Document 07/28/19 10:22 AW (Rec: 07/28/19 10:39 AW [id number]) PT Summary Assessment and Plan Summary Assessment Summary Pt has increased pain with mobility today but was able to progress gait distance substantially and to complete stair training with significant other present. Caregiver training completed and all questions answered. PT recommends discharge to home with assist and outpatient PT once medically cleared. Goals Bed Mobility Goal Standby Assistance Transfer Goal Standby Assistance Gait Goal Standby Assistance Gait Distance 150 Other Goals Safe for up/down stairs with rail. His significant other is capible and able to assist if needed. Days to Meet Goals 1 Frequency of Treatment Frequency Of Treatment Twice a Day Treatment Plan Physical Therapy Treatment Plan Bed Mobility Training,Transfer Training,Gait Training, Therapeutic Exercise,Balance Retraining,Post Op Education, Discharge Planning,Hot or Cold Pack Other Recommendations and Next Treatment Progress with stair training, Focus caregiver training as needed. she is going to bring in his walker tomorrow for inspection , sizing.
--- NOTE | 2019-07-28 11:28 | P.DS_ITS ---
History of Present Illness History of Present Illness Date Patient Seen: 07/28/19 Time Patient Seen: 11:28 Chief complaint: [id number] Narrative: See progress note Discharge Providers Provider Date of admission: 07/27/19 07:45 Discharge Date: 07/28/19 Primary care physician: Mika Bright MD Consults: 07/27/19 12:14 Consult to Discharge Planning Routine Comment: Consult to Physical Therapy Evaluate & Treat Comment: Physician Instructions: post op MARY ANNE protocol Consult to Respiratory Therapy Evaluate & Treat Comment: Physician Instructions: Evaluate and treat Discharge provider: Tam Chahal PA-C Summary Hospital Course Discharge Diagnosis: Status post right total hip arthroplasty secondary to severe right hip DJD Hospital Course: [address] [address] Operative Note Patient: Jose De Jesus Richard CMR#: [id number] : 2Acct:[id number] Age/Sex: 69 / M Date of Service: 07/27/19 Provider: Ruben Fatima MD Operative Date/Time/Diagnoses Date of procedure: 07/27/19 Time of procedure: 11:58 Pre-op diagnosis: Right hip degenerative joint disease Post-op diagnosis: same Procedure & Clinicians Procedure: Right total hip arthroplasty (CPT code 25440 with research assistant member) Indications: Patient is an 69-year-old male with severe right hip DJD. The patient has pain with activities and at rest, limited ambulation and activity tolerance, difficulties with ADLs, and failure of conservative treatment. We have discussed the nature of condition, treatment options, risks and benefits, and patient elects to proceed with total hip arthroplasty and gives informed consent. Surgeon: Ruben Fatima Electric Tripper Machine Operator: Tam Chahal Anesthesia Type: General and Spinal Operative Notes Closure Type: primary Specimen(s): none sent Prosthetic devices, grafts, tissues, transplants, or devices: Acetabulum: Ingram [employer] Nephew R3 acetabular component size 54 mm Femoral component: Ingram [employer] Nephew Anthology stem size 8 with standard offset Femoral head: 36 mm + 0 Oxinium Estimated Blood Loss (mL): 100 Patient admitted to the hospital for right total hip arthroplasty. Patient consented to the same. Patient taken to the operating room underwent right total hip arthroplasty. Patient back in his room recovering well as in stable condition. Physical therapy is worked within this morning. Patient was able to ambulate in the mcnulty. Status at Discharge Cognitive/behavioral status at discharge: at baseline, oriented Functional status at discharge: uses cane/walker Overall status at discharge: patient is progressing back to baseline Time Spent with Patient Time spent: Less than 30 minutes Exam Vital Signs (past 8 hours): - 07/28/19 05:22 07/28/19 07:50 Temperature 97.6 F 97.7 F Pulse Rate 66 73 Respiratory Rate 16 16 Blood Pressure 150/74 H 154/83 H Pulse Oximetry 98 Oxygen Delivery Method Room Air Oxygen Flow Rate 2 Narrative Exam Narrative: See progress note Objective Labs Result Diagrams: 07/28/19 05:17 Labs: Laboratory Results - last 24 hr 07/28/19 05:17 Hgb 12.3 L Hct 36.6 L Discharge Plan Discharge Plan Patient Disposition: Home Discharge Med Rec/Prescriptions Prescriptions: New enoxaparin [Lovenox] 40 mg/0.4 mL Syringe 40 mg subcut DAILY 9 Days Qty: 9 RF: 0 Continued irbesartan-hydrochlorothiazide 300-12.5 mg Tablet 1 tab PO DAILY RF: 0 colchicine 0.6 mg Tablet 0.6 mg PO DAILY PRN (Reason: Gout flareup) RF: 0 vardenafil [Levitra] 10 mg Tablet 10 mg PO DAILY PRN (Reason: Sexual Activity) RF: 0 bisoprolol fumarate 10 mg Tablet 10 mg PO DAILY RF: 0 naproxen sodium [Aleve] 220 mg Capsule 220 mg PO DAILY RF: 0 pravastatin 20 mg tablet 20 mg PO DAILY RF: 0 Follow up/Referrals: Mika Bright MD [Primary Care Provider] - Ruben Fatima MD [Physician] - Provider Discharge Instructions Diet: Diet as Tolerated Activity: Weightbearing as tolerated. Posterior hip precautions. Cold/Heat Therapy: Ice as needed Other treatments: Tylenol 500 mg q.4 hours, NSAID daily Skin/Wound/Dressing Care Report to your healthcare provider any signs of infection, such as:: chills, fe whitney, increased pain, unusual drainage and unusual redness Dressing: Keep clean and dry Discharge Data Primary Care Provider: Mika Bright V
[2019-07-28 11:52] VITALS: BP 106/64; PULSE 65; RESP 16; TEMP 36.8
[2019-07-28 12:00] VITALS: BP 114/72; PULSE 72
--- NOTE | 2019-07-28 13:30 | PC.NURSE ---
DISCHARGE: PATIENT CLEARED STAIRS W/ PHYSICAL THERAPY, OK TO DC HOME. TOLERATING PAIN LEVELS W/ MED REGIMEN. DRSG CHANGED TO COVERSITE. TREVOR INTACT, INCISION WELL APPROXIMATED, NO DRAINAGE OR ERYTHEMA, SOME SWELLING AND BRUISING NOTED. REVIEWED ALL DC PAPERWORK WITH PATIENT AND AFSANEH. THEY CONFIRM UNDERSTANDING. AFSANEH PICKED UP PATIENT'S SCRIPT FOR LOVENOX AT [facility]. THEY HAVE ALREADY FILLED ALL OTHER SCRIPTS PER [facility] PATH. AFSANEH WAS INSTRUCTED ON ADMINISTERING LOVENOX DOSE THIS AM, AND WAS ABLE TO DELIVER THE DOSE EFFECTIVELY. PATIENT LEFT W/ ALL BELONGINGS AND PAPERWORK BY WC WITH MILLER KILN DRIED SALT ESCORT TO VEHICLE.
--- NOTE | 2019-07-28 13:45 | CM.DANOTE ---
DCP/Assessment: Reviewed chart. Patient is a 69yr old male admitted to [facility] for elective right MARY ANNE performed on 07-27-19. PCP is Dr. Bright. Primary payor is 1)Medicare 2)Return Path. Attempted to meet with patient to assess d/c planning needs. Patient d/c'd from [facility] around 1:00pm. Per RN/Mars patient seen and cleared by PT. Patient following up for outpatient therapy. SERINA/Maria De Jesus picked him up. No identified d/c planning needs. P: Home today. ESTHER Alex Discharge Planning/Care Management CM Discharge Assessment Start: 07/28/19 13:43 Freq: Status: Discharge Protocol: Document 07/28/19 13:43 KJS (Rec: 07/28/19 13:45 KJS [id number]) Discharge Planning Assessment Assigned Can Tender ESTHER Alex Advance Directives? Yes Advance Directives on File Yes History Provided By Patient,Medical Record Prior Living Arrangements House Household Members significant other Type of transporation used prior to Drives own vehicle admit Independent with ADL's Yes Is patient alert and oriented? Yes Caregiver for Another No DME Already Rented / Owned FWW / Walker Patient/Family Preference OP PT Therapy Barriers to Discharge No Discharge Plan Home Transportation Arrangement Significant other to provide transport. Referrals Initiated None needed Review Status In Process Next Review Type Continued Stay Review Pre-Anesthesia Assessment Start: 07/24/19 07:33 Freq: Status: Discharge Protocol: Document 07/24/19 07:33 CAB (Rec: 07/24/19 07:50 CAB [id number]) Pre-Anesthesia Assessment PAC Comment RT TKA 07/10/16. Pt declined scheduling a PAC phone assessment, stated no changes to medical or medication history. Chart review only Patient Information Reviewed Via Chart Review Diagnostic Results CBC,EKG,Electrolytes Comment Labs/EKG @ [facility] 07/02/19 Primary Care Provider Mika Bright Seen Specialist in Last 12 Months Yes Specialist Seen Orthopedist,Other Comment Pain Specialist Primary Language Maori Cyber Security Engineer Required No Height 170.18 cm Weight 85.729 kg Body Mass Index (BMI) 29.6 Hearing Ability Normal Visual Assist Contacts Dentition Type Teeth, Natural Present Barriers to Learning None Other Aids No Hx Anesthesia Reactions No Hx Family Anesthesia Reaction No Hx Malignant Hyperthermia No Hx Blood Transfusions No Anesthesia Review Requested No alcohol intake current Smoking Status Never smoker Substance Use Type does not use Pain Present Pain Reported History of Falling (Recent or History of No ) Patient is completely paralyzed or No completely immobile Mental Status Oriented to own ability Is patient on oxygen? No Hx Sleep Apnea No Currently Taking a Beta Vincenzo No Anti-Coagulant Therapy No Has a Lens Edge Grinder Machine No Cardiac Testing No Hx Pacemaker/ICD No Pacemaker Rep Required? No Cardiac Clearance Received Not Applicable Urinary Catheter Present No Hx Urinary Self Catheterization No Diabetes No Hx Drug Resistant Organism No Presence of External or Internal Medical Yes: Right knee prosthesis Devices Marital Status Unknown Support System Significant Other Patient Discharge Plan Description Return Home Advance Directives? Yes Advance Directives on File Yes Power of Stucco Laborer Yes Power of Stucco Laborer Name Maria De Jesus Ordaz
== END 2019-07-28 13:00 | disposition home or self-care (01) | DRG 470 ==
PROVIDERS: Admitting Provider Orthopaedic Surgery; PCP Internal Medicine; Visit Provider Orthopaedic Surgery
PROC: 0SR90JZ Replacement of Right Hip Joint with Synthetic Substitute, Open Approach (ICD-10-PCS; CPT 27130; principal; 2019-07-27 09:45)
DX: M16.11 Unilateral primary osteoarthritis, right hip (principal); I10 Essential (primary) hypertension; E78.5 Hyperlipidemia, unspecified; Z23 Encounter for immunization
CPT/HCPCS: 36415; 72170; 85014; 85018; 88304; 90471; 90656; 94762; 97116; 97161; 97530; C1776; J0690; J1100; J1650; J1885; J2250; J2270; J2274; J2405; J2704; J3010; Q2038

== ENCOUNTER → 2019-08-26 18:35 | Outpatient (ROUT) | payer MEDICARE, OTHER, SELFPAY ==
[2019-07-27 12:19] VITALS: BMI 29.6
[2019-08-26 19:14] LABS: Aspartate Aminotransferase 31 IU/L (17-59); Blood Urea Nitrogen 27 mg/dL (9-20); Calcium 9.9 mg/dL (8.4-10.2); Carbon Dioxide 26 mmol/L (22-32); Chloride 103 mmol/L (98-107); Cholesterol 210 mg/dL (140-199); Estimated Glomerular Filt Rate > 60.0 mL/min (>60); Glucose 93 mg/dL (80-110); HDL Cholesterol 61 mg/dL (40-60); HEMOLYSIS < 15 (0-50); LDL Cholesterol Calculated 110 mg/dL (<100); Potassium 4.5 mmol/L (3.4-5.1); Sodium 140 mmol/L (137-145); Triglycerides 195 mg/dL (35-150)
[2019-08-26 19:16] LABS: Add Manual Diff / Slide Review NO; Basophils Absolute Auto 100 /uL (0-100); Basophils Percent Auto 0.8 % (0-2); Eosinophils Absolute Auto 100 /uL (0-450); Eosinophils Percent Auto 1.6 % (2-4); Hematocrit 37.4 % (41-53); Hemoglobin 12.8 g/dL (13.5-17.5); Lymphocytes Absolute Auto 1300 /uL (1100-4500); Lymphocytes Percent Auto 21.8 % (25-40); Mean Corpuscular HGB Conc 34.4 % (30-36); Mean Corpuscular Hemoglobin 32.4 PG (26-34); Mean Corpuscular Volume 94.1 fL (80-100); Monocytes Absolute Auto 700 /uL (0-900); Monocytes Percent Auto 10.7 % (3-14); Neutrophils Absolute Auto 4000 /uL (1500-7000); Neutrophils Percent Auto 65.1 % (50-75); Platelet Count 347 X10^3/uL (150-400); Red Blood Cell Count 3.97 X10^6/uL (4.5-5.9); Red Cell Distribution Width 12.8 % (11.6-14.8); White Blood Cell Count 6.2 X10^3/uL (4.5-11.0)
[2019-08-26 19:44] LABS: Prostate Specific Antigen 1.17 ng/mL (0.10-4.00)
[2019-08-26 19:47] LABS: TSH w/ Reflex to FT4 2.31 uIU/mL (0.47-4.68)
== END ==
PROVIDERS: PCP Internal Medicine; Visit Provider Internal Medicine
DX: I48.3 Typical atrial flutter (principal); I10 Essential (primary) hypertension; E78.2 Mixed hyperlipidemia; N40.0 Benign prostatic hyperplasia without lower urinary tract symptoms
CPT/HCPCS: 80048; 80061; 84153; 84443; 84450; 85025

== ENCOUNTER 2019-09-22 08:20 | Emergency (ER) | payer MEDICARE, OTHER, SELFPAY ==
[2019-07-27 12:19] VITALS: BMI 29.6
[2019-09-22 08:30] VITALS: BP 152/102; PULSE 70; RESP 12; TEMP 36.8; O2SAT 100
--- NOTE | 2019-09-22 08:31 | ED_ITS ---
HPI - Extremity Problem General Chief complaint: Extremity Problem,Nontraumatic Stated complaint: SWOLLEN LEFT ANKLE, COUPLE OF WEEKS Time Seen by Provider: 09/22/19 08:21 Source: patient Mode of arrival: Ambulatory Limitations: no limitations History of Present Illness HPI Narrative: 69-year-old nonsmoker with history of hypertension, hyperlipidemia and a relatively recent total right hip arthroplasty presents wi th a chief complaint of 2 weeks of left ankle pain and swelling. He denies any specific or known injury. He denies fever or chills. He denies any redness or warmth. He denies any numbness, tingling or weakness. He denies any ongoing pain or trouble with his right hip. His pain is worse with ambulation and improves with rest. In the postoperative phase he took Lovenox for 10 days and aspirin up until September 10. MD Complaint: extremity pain and extremity swelling Onset (ago): week(s) Pain Consistency: constant Location: left Quality: aching Radiation: none Relieving factors: rest Exacerbating factors: range of motion, weight bearing and walking Associated symptoms: denies other symptoms Context: recent surgery/procedure Related Data Home Medications Medication Instructions Recorded Confirmed pravastatin 20 mg tablet 20 mg PO DAILY 11/14/18 07/27/19 colchicine 0.6 mg PO DAILY PRN 07/24/19 07/24/19 irbesartan-hydrochlorothiazide 1 tab PO DAILY 07/24/19 07/27/19 vardenafil [Levitra] 10 mg PO DAILY PRN 07/24/19 07/24/19 bisoprolol fumarate 10 mg PO DAILY 07/27/19 07/27/19 naproxen sodium [Aleve] 220 mg PO DAILY 07/27/19 07/27/19 Allergies Allergy/AdvReac Type Severity Reaction Status Date / Time amlodipine [From [facility]] Allergy Mild swelling Verified 12/30/18 15:18 ankles Review of Systems Constitutional Constitutional: Denies chills, Denies fatigue, Denies fever(s), Denies frequent falls, Denies lethargy and Denies weakness Eyes Eyes: Denies change in vision, Denies eye discharge, Denies irritation and Denies loss of vision ENT Ears, Nose, Mouth, and Throat: Denies change in voice, Denies dizziness, Denies neck pain, Denies sore throat and Denies throat swelling Cardiovascular Cardiovascular: Denies chest pain, Denies irregular heart rhythm, Denies lightheadedness, Denies palpitations, Denies dyspnea, Denies dyspnea on exertion and Denies orthopnea Respiratory Respiratory: Denies cough, Denies dyspnea, Denies dyspnea on exertion and Denies wheezing Gastrointestinal Gastrointestinal: Denies abdominal pain, Denies change in bowel habits, Denies diarrhea, Denies nausea and Denies vomiting Genitourinary Genitourinary: Denies hematuria, Denies flank pain, Denies urinary incontinence and Denies urinary urgency Musculoskeletal Musculoskeletal: Denies back pain, Reports joint swelling, Reports limited range of motion, Denies muscle weakness, Denies neck pain, Denies numbness and Denies tingling Integumentary/Breasts Skin/Breast: Denies pruritus, Denies erythema, Denies rash and Denies wounds Neurologic Neurologic: Denies behavioral changes, Denies confusion, Denies dizziness, Denies frequent falls, Denies loss of vision, Denies numbness, Denies tingling and Denies weakness Psychiatric Psychiatric: Denies anxiety, Denies behavioral changes, Denies confusion, Denies depression, Denies homicidal ideation and Denies suicidal ideation Endocrine Endocrine: Denies fatigue, Denies flushing and Denies palpitations Hematologic/Lymphatic Hematologic/Lymphatic: Denies easy bruising Allergic/Immunologic Allergic/Immunologic: Denies urticaria, Denies throat swelling and Denies wheezing Patient History Medical History Clavicle fracture (Acute) HLD (hyperlipidemia) (Acute) Paroxysmal A-fib (Acute) Surgical History H/O vasectomy (Acute) History of arthroplasty of right knee (Acute 07/10/16) Hx of cholecystectomy (Acute) S/P surgical manipulation of knee joint (Acute 10/12/16) S/P trigger finger release (Acute) Status post knee surgery Status post laparoscopic cholecystectomy Social History household members: significant other Smoking Status: Never smoker alcohol intake: current Smoking Status: Never smoker Substance Use Type: does not use Exam Narrative Exam Narrative: GENERAL: [69] year old patient appears stated age. Well-nou rished, well-developed patient, in mild distress. HEAD: Atraumatic. Normocephalic. EYES: Pupils equal round and reactive. Extraocular motions intact. No scleral icterus. No injection or drainage. ENT: Nose without bleeding, purulent drainage. Throat without erythema, tonsillar hypertrophy or exudate. Airway patent. NECK: Trachea midline. Non tender CARDIOVASCULAR: Regular rate and rhythm without murmurs, gallops, or rubs. RESPIRATORY: Clear to auscultation. Breath sounds equal bilaterally. No wheezes, rales, or rhonchi. GASTROINTESTINAL: Abdomen soft, non-tender, nondistended. EXTREMITIES: Right hip incision is clean, dry and intact, no pain. Left ankle is swollen and swipe lead tender over the lateral malleolus. No redness, no warmth. Neurovascular intact BACK: Nontender without deformity or crepitance. No flank tenderness. NEURO: AOx3. SKIN: No rash or erythema of visible areas Initial Vital Signs Initial Vital Signs: Vital Signs Temperature 98.2 F 09/22/19 08:30 Pulse Rate 70 09/22/19 08:30 Respiratory Rate 12 09/22/19 08:30 Blood Pressure 152/102 H 09/22/19 08:30 Pulse Oximetry 100 09/22/19 08:30 Course Orders Ordered: ED Orders 09/22/19 08:41 US periph venous low extrem lt Stat XR ankle LT min 3V Stat 09/22/19 09:12 Basic Metabolic Panel Stat C-Reactive Protein Quant Stat Complete Blood Count AUTO DIFF Stat Erythrocyte Sedimentation Rate Stat Uric Acid Stat Consultations Consultation #1: Discussion with on-call Orthopedics whom recommend walking boot and close follow-up with ortho, suggesting this could certainly be a complication of osteoarthritis. Patient refuses boot, and will just follow up. Vital Signs Vital signs: Vital Signs - 8 hr 09/22/19 08:30 09/22/19 10:46 Temperature 98.2 F Pulse Rate 70 61 Respiratory Rate 12 18 Blood Pressure 152/102 H 160/95 H Pulse Oximetry 100 99 MDM - Extremity (Nontraumatic) Lab Data Result diagrams: 09/22/19 09:12 09/22/19 09:12 Labs: Lab Results 09/22/19 09/22/19 Range/Units 09:12 09:12 WBC 5.1 (4.5-11.0) X10^3/uL RBC 4.13 L (4.5-5.9) X10^6/uL Hgb 13.2 L (13.5-17.5) g/dL Hct 39.3 L (41-53) % MCV 95.1 (80-100) fL MCH 31.9 (26-34) PG MCHC 33.5 (30-36) % RDW 12.3 (11.6-14.8) % Plt Count 251 (150-400) X10^3/uL Neut % (Auto) 66.4 (50-75) % Lymph % (Auto) 20.6 L (25-40) % Winn % (Auto) 9.5 (3-14) % Eos % (Auto) 2.6 (2-4) % Baso % (Auto) 0.9 (0-2) % Neut # (Auto) 3400 (5971-6207) /uL Lymph # (Auto) 1000 L (1401-0946) /uL Winn # (Auto) 500 (0-900) /uL Eos # (Auto) 100 (0-450) /uL Baso # (Auto) 0 (0-100) /uL ESR 28 H (0-15) MM/HR Sodium 139 (137-145) mmol/L Potassium 4.2 (3.4-5.1) mmol/L Chloride 102 (98-107) mmol/L Carbon Dioxide 30 (22-32) mmol/L BUN 22 H (9-20) mg/dL Creatinine 1.00 (0.66-1.25) mg/dL Estimated GFR > 60.0 (>60) mL/min BUN/Creatinine Ratio 22.0 (6-22) Glucose 103 (80-110) mg/dL Uric Acid 6.8 (3.5-8.5) mg/dL Calcium 9.4 (8.4-10.2) mg/dL C-Reactive Protein 0.9 (<1.0) mg/dL Imaging Data Ankle Xray: Radiologist's impression: [address] [address] XRay Report Signed Patient: Jose De Jesus Richard CMR#: [id number] : 2Acct:[id number] Age/Sex: 69 / MDate of Service: 09/22/19 Loc: ED Accession Number: [id number] Procedure: XR ankle LT min 3V Ordering Provider: Tom Guidry D.O. PROCEDURE: XR ANKLE LT MIN 3V INDICATIONS: pain swelling L ankle, Lateral mall TECHNIQUE: 3 views of the ankle were acquired. COMPARISON: None. FINDINGS: Bones: No fractures or dislocations. Ankle mortise is normally aligned. No suspicious bony lesions. Mild periarticular osteophyte formation at the tibiotalar joint. Soft tissues: No tibiotalar joint effusion. Achilles tendon appears normal. IMPRESSION: Osteoarthritis. No acute fracture. No osseous lesion. If symptoms and/or clinical suspicion for pathology persist, further assessment with repeat, or advanced imaging (e.g., CT, MRI, or bone scan) may be helpful for further assessment. Dictated by: Dino Gaines M.D. on 09/22/2019 at 8:56 Approved by: Dino Gaines M.D. on 09/22/2019 at 8:57 DVT: Radiologist's impression: [place] [address] Ultrasound Report Signed Patient: Jose De Jesus Richard CMR#: [id number] : 2Acct:[id number] Age/Sex: 69 / MDate of Service: 09/22/19 Loc: ED Accession Number: [id number] Procedure: US periph venous low extrem lt Ordering Provider: Tom Guidry D.O. PROCEDURE: US PERIPH VENOUS LOW EXTREM LT INDICATIONS: ANKLE PAIN/SWELLING, RECENT SURGERY TECHNIQUE: Real-time imaging, as well as color and pulse Doppler interrogation, were performed of the lower extremity deep veins from the inguinal ligament to the popliteal fossa. COMPARISON: None. FINDINGS: The common femoral, femoral and popliteal veins are normally compressible, and free of intraluminal thrombus. Color and pulse Doppler demonstrate normal phasic intraluminal flow. There is normal augmentation response to distal compression maneuver. IMPRESSION: No acute venous thrombosis in the left lower extremity. Dictated by: Jhonny Lugo M.D. on 09/22/2019 at 9:49 Approved by: Jhonny Lugo M.D. on 09/22/2019 at 9:50 MDM Narrative Medical decision making narrative: Multiple etiologies for patient's symptoms considered including: [Gout versus septic arthritis versus arthritic exacerbation due to postop gait change versus DVT] Patient's symptoms improved or duration of stay with above-stated therapies. Findings and discharge diagnosis discussed with patient/family followed by verbalization of understanding Return precautions discussed with patient/family whom verbalize understanding. Discharge Plan Departure Patient Disposition: Home Clinical Impression: Acute ankle pain Qualifiers: Laterality: left Qualified Code(s): M25.572 - Pain in left ankle and joints of left foot Discharge Date/Time: 09/22/19 10:46 Activity Restrictions/Additional Instructions: *You have been diagnosed with [acute left ankle pain. Blood clot, infection, gout among others were considered but thought less likely given your reassuring story, physical exam and lab findings. I have consulted with Dr. Dedrick Ruiz of [facility] as we discussed and he request that you follow-up in the office with either he or Dr. Fatima, please call today for a follow up appointment and let them know you were seen in the Emergency Department] *Return to ER if you should have any new, worsening or concerning symptoms, such as [worsening pain, redness, swelling, fever or shaking chills or other bothersome symptoms] Prescriptions: No Action irbesartan-hydrochlorothiazide 300-12.5 mg Tablet 1 tab PO DAILY RF: 0 colchicine 0.6 mg Tablet 0.6 mg PO DAILY PRN (Reason: Gout flareup) RF: 0 vardenafil [Levitra] 10 mg Tablet 10 mg PO DAILY PRN (Reason: Sexual Activity) RF: 0 bisoprolol fumarate 10 mg Tablet 10 mg PO DAILY RF: 0 naproxen sodium [Aleve] 220 mg Capsule 220 mg PO DAILY RF: 0 pravastatin 20 mg tablet 20 mg PO DAILY RF: 0 Referrals: Mika Bright MD [Primary Care Provider] - Ruben Fatima MD [Physician] -
--- NOTE | 2019-09-22 08:41 | DI.RAD.S_ITS ---
PROCEDURE: XR ANKLE LT MIN 3V INDICATIONS: pain swelling L ankle, Lateral mall TECHNIQUE: 3 views of the ankle were acquired. COMPARISON: None. FINDINGS: Bones: No fractures or dislocations. Ankle mortise is normally aligned. No suspicious bony lesions. Mild periarticular osteophyte formation at the tibiotalar joint. Soft tissues: No tibiotalar joint effusion. Achilles tendon appears normal. IMPRESSION: Osteoarthritis. No acute fracture. No osseous lesion. If symptoms and/or clinical suspicion for pathology persist, further assessment with repeat, or advanced imaging (e.g., CT, MRI, or bone scan) may be helpful for further assessment. Dictated by: Dino Gaines M.D. on 09/22/2019 at 8:56 Approved by: Dino Gaines M.D. on 09/22/2019 at 8:57
--- NOTE | 2019-09-22 08:41 | DI.US.S_ITS ---
PROCEDURE: US PERIPH VENOUS LOW EXTREM LT INDICATIONS: ANKLE PAIN/SWELLING, RECENT SURGERY TECHNIQUE: Real-time imaging, as well as color and pulse Doppler interrogation, were performed of the lower extremity deep veins from the inguinal ligament to the popliteal fossa. COMPARISON: None. FINDINGS: The common femoral, femoral and popliteal veins are normally compressible, and free of intraluminal thrombus. Color and pulse Doppler demonstrate normal phasic intraluminal flow. There is normal augmentation response to distal compression maneuver. IMPRESSION: No acute venous thrombosis in the left lower extremity. Dictated by: Jhonny Lugo M.D. on 09/22/2019 at 9:49 Approved by: Jhonny Lugo M.D. on 09/22/2019 at 9:50
[2019-09-22 09:20] LABS: Add Manual Diff / Slide Review NO; Basophils Absolute Auto 0 /uL (0-100); Basophils Percent Auto 0.9 % (0-2); Eosinophils Absolute Auto 100 /uL (0-450); Eosinophils Percent Auto 2.6 % (2-4); Hematocrit 39.3 % (41-53); Hemoglobin 13.2 g/dL (13.5-17.5); Lymphocytes Absolute Auto 1000 /uL (1100-4500); Lymphocytes Percent Auto 20.6 % (25-40); Mean Corpuscular HGB Conc 33.5 % (30-36); Mean Corpuscular Hemoglobin 31.9 PG (26-34); Mean Corpuscular Volume 95.1 fL (80-100); Monocytes Absolute Auto 500 /uL (0-900); Monocytes Percent Auto 9.5 % (3-14); Neutrophils Absolute Auto 3400 /uL (1500-7000); Neutrophils Percent Auto 66.4 % (50-75); Platelet Count 251 X10^3/uL (150-400); Red Blood Cell Count 4.13 X10^6/uL (4.5-5.9); Red Cell Distribution Width 12.3 % (11.6-14.8); White Blood Cell Count 5.1 X10^3/uL (4.5-11.0)
[2019-09-22 09:33] LABS: Blood Urea Nitrogen 22 mg/dL (9-20); C-Reactive Protein Quant 0.9 mg/dL (<1.0); Calcium 9.4 mg/dL (8.4-10.2); Carbon Dioxide 30 mmol/L (22-32); Chloride 102 mmol/L (98-107); Estimated Glomerular Filt Rate > 60.0 mL/min (>60); Glucose 103 mg/dL (80-110); HEMOLYSIS < 15 (0-50); Potassium 4.2 mmol/L (3.4-5.1); Sodium 139 mmol/L (137-145); Uric Acid 6.8 mg/dL (3.5-8.5)
[2019-09-22 09:54] LABS: Erythrocyte Sedimentation Rate 28 MM/HR (0-15)
[2019-09-22 10:46] VITALS: BP 160/95; PULSE 61; RESP 18; O2SAT 99
== END 2019-09-22 10:46 | disposition home or self-care (01) ==
PROVIDERS: Emergency Provider Emergency Medicine; PCP Internal Medicine
DX: M25.572 Pain in left ankle and joints of left foot (principal); R60.0 Localized edema
CPT/HCPCS: 36415; 73610; 80048; 84550; 85025; 85651; 86140; 93971; 99283; 99284

== ENCOUNTER → 2019-10-12 13:47 | Outpatient (CLI) | payer MEDICARE, OTHER, SELFPAY ==
[2019-07-27 12:19] VITALS: BMI 29.6
--- NOTE | 2019-10-12 | DI.ECHO.S_ITS ---
[facility]---------+ [facility] +---------+ : : [address] [place] [address] : : : : [id number] : : : : Phone: [phone] Echocardiogram Report + + :Name: DESHAUN KHAN Study Date: 10/12/2019 Height: 66 in : :[facility] Weight: 185 lb : : Gender: Male BSA: 1.9 m2 : :: 1950 Age: 69 yrs BP: 142/88 mmHg: :Reason For Study: Hypertension : :Ordering Physician: Dr. Brennan : :Deangelo Performed By: Efrain Ramos : :Referring: NATY ELIZABETH : + + Interpretation Summary Left ventricular wall thickness is mild-moderately increased. The left ventricular ejection fraction is normal. There are no focal wall motion abnormalities. Diastolic parameters suggest a relaxation abnormality of the left ventricle, consistent with probable normal filling pressures. The right ventricle is normal in size and function. Pulmonary artery pressures cannot be estimated because of the lack of a measurable TR jet velocity. Ascending aorta is mildly dilated at 3.9 cm. This is similar to the prior study. -Overall this echocardiogram shows mild changes related to hypertensive heart disease. -Compared to the prior echo, patient is now in normal sinus rhythm with resolution of the mitral regurgitation. The RV function was described as mildly reduced on the prior echo but is normal on this study. The ascending aorta diameter is unchanged. Procedure: A two-dimensional transthoracic echocardiogram with color flow and Doppler was performed. The study quality was technically adequate. Prior echo performed on 04/12/15. The patient was in normal sinus rhythm during the exam. Left Ventricle: The left ventricle is normal in size. Left ventricular wall thickness is mild-moderately increased. The ejection fraction is estimated to be 55-60%. The left ventricular ejection fraction is normal. There are no focal wall motion abnormalities. Diastolic parameters suggest a relaxation abnormality of the left ventricle, consistent with probable normal filling pressures. Right Ventricle: The right ventricle is normal in size and function. Atria: The left atrial size is normal. Right atrial size is normal. There is no Doppler evidence for an interatrial shunt. Mitral Valve: The mitral valve is normal in structure and function. There is no mitral regurgitation noted. Aortic Valve: The aortic valve is trileaflet. The aortic valve opens well. There is no aortic valve stenosis. No aortic regurgitation is present. Tricuspid Valve: The tricuspid valve is normal in structure and function. There is trace tricuspid regurgitation. Pulmonary artery pressures cannot be estimated because of the lack of a measurable TR jet velocity. Pulmonic Valve: The pulmonic valve is normal in structure and function. There is trace pulmonic regurgitation. Great Vessels: The aortic root is normal size. The ascending aorta is mildly enlarged. The pulmonary artery is normal size. The inferior vena cava was not well visualized. Pericardium/ Pleura There is no pericardial effusion. There is no pleural effusion. MMode/2D Measurements & Calculations LVIDd: 4.0 cm LVOT diam: 2.2 cm LVIDs: 2.8 cm Ao root diam: 3.4 cm FS: 29.7 % Aortic Jxn: 2.9 cm EPSS: 0.62 cm asc Aorta Diam: 3.9 cm IVSd: 1.3 cm LVPWd: 0.97 cm LV ventura. diameter/BSA (cm/m^2): 2.1 LV sys. diameter/BSA (cm/m^2): 1.5 LA A2 area: 19.3 cm2 RA long axis: 5.6 cm LA A4 area: 18.5 cm2 RA area: 11.3 cm2 LA length (vol): 6.5 cm RA vol: 19.2 ml LA vol: 46.6 ml RA : 9.9 ml/m2 LA vol index: 24.1 ml/m2 TAPSE: 2.0 cm Doppler Measurements & Calculations Ao V2 max: 106.9 cm/sec LVOT Max Christopher: 86.8 cm/sec Ao V2 mean: 76.5 cm/sec LV V1 max P.0 mmHg Ao max P.6 mmHg LV V1 VTI: 18.1 cm Ao mean P.6 mmHg FRANKIE(I,D): 3.6 cm2 Ao V2 VTI: 18.7 cm FRANKIE(V,D): 3.0 cm2 sev ratio: 0.97 FRANKIE indexed to BSA (cm^2/m^2): 1.9 MV E max christopher: 55.2 cm/sec PA V2 max: 96.9 cm/sec MV A max christopher: 82.5 cm/sec PA V2 mean: 61.7 cm/sec MV E/A: 0.67 PA mean P.9 mmHg Med Peak E' Christopher: 6.4 cm/sec PA Accel Time: 0.10 sec E/E' med: 8.6 Lat Peak E' Christopher: 9.0 cm/sec E/E' lat: 6.2 E/e' average: 7.4 MV dec time: 0.14 sec SV(LVOT): 67.5 ml Electronically signed by: Miguelito Forman M.D. on Reading Physician:10/13/2019 09:33 AM
--- NOTE | 2019-10-12 | DI.NM.S_ITS ---
PROCEDURE: NM MARK PERF SPECT REST & STR Rest and exercise myocardial perfusion SPECT with gated imaging and ejection fraction RADIOPHARMACEUTICAL: 25.8 mCi Tc-99m sestamibi IV at rest and 27 mCi Tc-99m sestamibi IV at peak exercise. A [id number] was performed. INDICATIONS: Essential (primary) hypertension, abnormal ECG TECHNIQUE: Radiopharmaceutical was injected at peak stress test, and also at rest. SPECT images were obtained. SPECT myocardial perfusion images were displayed in short axis, horizontal long axis, and vertical long axis views. Gated images were reviewed using [employer] software. COMPARISON: None. CARDIAC STRESS: A standard Galen treadmill exercise tolerance test was performed by the patient under the supervision of an attending staff. The patient exercised for 7 minutes and 21 seconds; functional aerobic impairment (MARÍA) is 1 %. Hemodynamic data: There is normal blood pressure and heart rate response to exercise stress. Please note that patient was hypertensive at baseline with blood pressure of 160/100 mmHg which appropriately increased to 200/106 mmHg at peak exercise. Patient achieved 97% of maximum predicted heart rate at peak exercise. Symptoms: Patient denied chest pain during exercise. EKG: Baseline ECH shows T wave inversion in inferior and V3 which to some extent pseudonormalize with exercise. No diagnostic EKG changes of ischemia; no ectopy. FINDINGS: Raw data: There is good myocardial labeling by radiotracer. No significant motion artifacts. Xgre-mc-lsxmg ratio is 0.37(normal is less than 0.38 for sestamibi tracer, and less than 0.50 for thallium tracer). Left ventricle function: Gated images demonstrate normal left ventricle wall thickening. No segmental wall motion abnormality. No transient ischemic dilation; TID is 0.67 (normal less than 1.3). The left ventricle resting end-diastolic volume is 84 mL. Left ventricle stress ejection fraction is >75% ; normal values are above 45%. Myocardial perfusion: There is a moderate-size, moderately severe perfusion effect in the lateral wall from the base to apex both at rest and supine stress which improves significantly n prone imaging except for a small mid-apical defect. The right ventricle appears hypertrophied. There is adjacent interfering subdiaphragmatic artifact. Otherwise there is normal distribution of activity in the left ventricular myocardium. No fixed or reversible perfusion defects. IMPRESSION: -Equivocal study. The lateral wall defect could represent a scar but it improves considerably with prone imaging despite incomplete resolution. There is adjacent interfering activity. I highly suspect this is artifact though. -Average exercise capacity. -This is an overall low risk study. Dictated by: Miguelito Forman M.D. on 10/13/2019 at 19:41 Approved by: Miguelito Forman M.D. on 10/13/2019 at 19:50
== END ==
PROVIDERS: PCP Internal Medicine; Visit Provider Internal Medicine
DX: R94.31 Abnormal electrocardiogram [ECG] [EKG] (principal); I77.89 Other specified disorders of arteries and arterioles; I10 Essential (primary) hypertension
CPT/HCPCS: 78452; 93016; 93017; 93018; 93306; A9502

== ENCOUNTER → 2019-12-19 13:37 | Outpatient (CLI) | payer MEDICARE, OTHER, SELFPAY ==
[2019-07-27 12:19] VITALS: BMI 29.6
--- NOTE | 2019-12-19 | DI.MRI.S_ITS ---
PROCEDURE: MR LUMBAR SPINE WO CON INDICATIONS: Disc degeneration TECHNIQUE: Noncontrast sagittal T1 spin echo and T2 fast echo, sagittal STIR, axial T1 and T2 fast spin echo through the lumbar spine. In cases with scoliosis, additional coronal T2 fast spin echo may be performed. COMPARISON: [facility], MR, MR LUMBAR SPINE WO CON, 09/16/2018, 12:55. [facility] [place], CR, XR LUMBAR SPINE 2 OR 3 VIEWS, 12/14/2019, 15:58. FINDINGS: Image quality: Excellent. Alignment and Curvature: There is loss of normal lumbar lordosis. There is mild grade 1 retrolisthesis of T12 on L1, L1 on L2, L2 on L3, L3 on L4, and L5 on S1. Bone Marrow: Marrow is of normal overall signal. No acute vertebral body compression fractures. There is moderate reactive signal within the endplates adjacent to the L4-L5 and L5-S1 intervertebral discs. Mild reactive signal within the endplates adjacent to the T12-L1, L1-L2, L2-L3, and L3-L4 intervertebral discs. Spinal Cord: Conus medullaris terminates at the upper L1 level. Visualized cord demonstrates normal signal and size. Paraspinous Soft Tissues: No paravertebral masses. L1-L2: Moderate disc height loss and desiccation. Mild diffuse disc bulge. Mild facet and ligament flavum hypertrophy. Mild epidural lipomatosis. Mild canal stenosis. No foraminal stenosis. No change. L2-L3: Moderate disc height loss and desiccation. Mild diffuse disc bulge. Mild facet and ligament flavum hypertrophy. Moderate epidural lipomatosis. Severe canal stenosis. Moderate bilateral foraminal stenosis. No change. L3-L4: Moderate disc height loss and desiccation. Mild diffuse disc bulge/osteophyte. Mild facet and ligamentum hypertrophy. Moderate epidural lipomatosis. Severe canal stenosis. Moderate subarticular foraminal stenosis bilaterally. No change. L4-L5: The moderate disc height loss and desiccation. Moderate diffuse disc bulge with superimposed right paracentral disc extrusion, which is new since the prior examination. Mild facet and ligament flavum hypertrophy bilaterally. Mild epidural lipomatosis. There is increased, severe canal stenosis. There is impingement upon the right L5 nerve root within the lateral recess, new since the prior examination. Previously seen left-sided periarticular cyst is no longer present. Moderate bilateral subarticular foraminal stenosis. L5-S1: Moderate disc height loss and desiccation. Mild diffuse disc bulge. Mild bilateral facet hypertrophy. Mild epidural lipomatosis. Severe canal stenosis. Moderate subarticular foraminal stenosis bilaterally. No change. IMPRESSION: 1. Multilevel degenerative disc and facet disease, as well as ligamentum flavum hypertrophy and epidural lipomatosis. 2. Multilevel canal stenoses, worst at L2-L3, L3-L4, L4-L5, and L5-S1 where there are severe canal stenoses present. 3. Multilevel foraminal stenoses, worst at L2-L3, L3-L4, L4-L5, and L5-S1 bilaterally where there are moderate foraminal stenoses present. 4. Right L5 nerve root compression at the L4-L5 level, predominantly secondary to disc extrusion. Recommend correlation with clinical symptoms to ascertain relevance of this finding. Dictated by: Dino Gaines M.D. on 12/21/2019 at 15:30 Approved by: Dino Gaines M.D. on 12/21/2019 at 15:36
== END ==
PROVIDERS: PCP Internal Medicine; Referring Provider Orthopaedic Surgery; Visit Provider Orthopaedic Surgery
DX: M51.36 Other intervertebral disc degeneration, lumbar region (principal); M51.37 Other intervertebral disc degeneration, lumbosacral region; M51.26 Other intervertebral disc displacement, lumbar region; M48.061 Spinal stenosis, lumbar region without neurogenic claudication; M48.07 Spinal stenosis, lumbosacral region; E88.2 Lipomatosis, not elsewhere classified
CPT/HCPCS: 72148

== ENCOUNTER 2020-02-28 10:18 | Emergency (ER) | payer MEDICARE, OTHER, SELFPAY ==
[2019-07-27 12:19] VITALS: BMI 29.6
[2020-02-28 10:20] VITALS: BP 187/86; PULSE 86; RESP 18; TEMP 36.7; O2SAT 99; BMI 29.4
--- NOTE | 2020-02-28 10:42 | DI.RAD.S_ITS ---
PROCEDURE: XR FOOT RT MIN 3V INDICATIONS: swelling, non traumatic TECHNIQUE: 3 views of the foot were acquired. COMPARISON: None. FINDINGS: Bones: No fractures or dislocations. No suspicious bony lesions. No plain film evidence of acute osteomyelitis. Soft tissues: No tibiotalar joint effusion. Achilles tendon appears normal. No radiopaque foreign body. No soft tissue gas. IMPRESSION: No evidence acute bony abnormality of the right foot. If clinical suspicion and/or symptoms persist, further assessment with repeat plain films, or advanced imaging (e.g., CT, MRI, or bone scan) may be helpful for further assessment. Dictated by: Rajinder Davila M.D. on 02/28/2020 at 10:05 Approved by: Rajinder Davila M.D. on 02/28/2020 at 10:06
--- NOTE | 2020-02-28 10:44 | DI.RAD.S_ITS ---
PROCEDURE: XR ANKLE RT MIN 3V INDICATIONS: ankle swelling. no trauma, recent MODS procedure TECHNIQUE: 3 views of the ankle were acquired. COMPARISON: None. FINDINGS: Bones: No fractures or dislocations. Mild tibiotalar degenerative change. Ankle mortise is normally aligned. No suspicious bony lesions. Soft tissues: No tibiotalar joint effusion. Achilles tendon appears normal. No soft tissue gas. Small vessel calcifications suggest possible diabetes. IMPRESSION: No evidence acute bony abnormality of the right ankle If clinical suspicion and/or symptoms persist, further assessment with repeat plain films, or advanced imaging (e.g., CT, MRI, or bone scan) may be helpful for further assessment. Dictated by: Rajinder Davila M.D. on 02/28/2020 at 10:06 Approved by: Rajinder Davila M.D. on 02/28/2020 at 10:08
[2020-02-28] MEDS: HYDROCODONE/ACET 5/325 TABLET 1 TAB PO (11:37)
[2020-02-28] MEDS: SODIUM CHLORIDE 0.9% 1,000 ML 1000 ML IV (11:47)
[2020-02-28 12:03] LABS: Add Manual Diff / Slide Review NO; Basophils Absolute Auto 0 /uL (0-100); Basophils Percent Auto 0.7 % (0-2); Eosinophils Absolute Auto 100 /uL (0-450); Eosinophils Percent Auto 1.8 % (2-4); Hematocrit 39.9 % (41-53); Hemoglobin 13.9 g/dL (13.5-17.5); Lymphocytes Absolute Auto 1200 /uL (1100-4500); Mean Corpuscular Hemoglobin 33.8 PG (26-34); Mean Corpuscular Volume 96.6 fL (80-100); Monocytes Absolute Auto 700 /uL (0-900); Monocytes Percent Auto 10.3 % (3-14); Neutrophils Absolute Auto 4700 /uL (1500-7000); Neutrophils Percent Auto 69.2 % (50-75); Platelet Count 278 X10^3/uL (150-400); Red Blood Cell Count 4.13 X10^6/uL (4.5-5.9); Red Cell Distribution Width 12.5 % (11.6-14.8); White Blood Cell Count 6.8 X10^3/uL (4.5-11.0)
--- NOTE | 2020-02-28 12:03 | ED_ITS ---
HPI - Extremity Problem <ADRIA Batista - Last Filed: 02/28/20 19:29> General Chief complaint: Extremity Problem,Nontraumatic Stated complaint: right ankle swelling/warm/pain x3 wks Time Seen by Provider: 02/28/20 11:08 Source: patient Mode of arrival: Family Vehicle Limitations: no limitations History of Present Illness HPI Narrative: 69yo male presents to the ED complaining of right ankle swelling for the past 6 weeks. Patient states he had a MODS procedure to remove basal cell carcinoma that was completed by the performance test architect approximately 6 weeks ago (total procedure approximately 2 hours). Seven days later he developed an infection with purulent drainage in the surgical site. Patient was put on Levaquin but that was discontinued due to side effects. He reports taking amoxicillin as well. He states the wound has healed but he continues to have significant swelling in his right ankle. Patient reports the pain and swelling have increased over the past few days. Patient states the pain is located mainly in his Right 1st digit (MCP joint) and right lateral malleolus. He states he does have a history of gout but this feels different than previous gout attacks. Patient denies any trauma to the area, fevers, chills, nausea, vomiting, diarrhea purulent drainage from the wound at this time, or any other concerns. Patient denies any major medical issues, states that he is allergic to Levaquin. Related Data Home Medications Medication Instructions Recorded Confirmed pravastatin 20 mg tablet 20 mg PO DAILY 11/14/18 07/27/19 colchicine 0.6 mg PO DAILY PRN 07/24/19 07/24/19 irbesartan-hydrochlorothiazide 1 tab PO DAILY 07/24/19 07/27/19 vardenafil [Levitra] 10 mg PO DAILY PRN 07/24/19 07/24/19 bisoprolol fumarate 10 mg PO DAILY 07/27/19 07/27/19 naproxen sodium [Aleve] 220 mg PO DAILY 07/27/19 07/27/19 Previous Rx's Medication Instructions Recorded oxycodone-acetaminophen [Percocet] 1 tab PO Q6H PRN #20 tab 02/28/20 Allergies Allergy/AdvReac Type Severity Reaction Status Date / Time amlodipine [From [facility]] Allergy Mild swelling Verified 02/28/20 10:49 ankles Review of Systems <ADRIA Batista - Last Filed: 02/28/20 19:29> Review of Systems Narrative: REVIEW OF SYSTEMS: GENERAL: Denies fever or chills. CARDIOVASCULAR: No chest pain. RESPIRATORY: No cough. GASTROINTESTINAL: No nausea, vomiting, or diarrhea. MUSCULOSKELETAL: Complains of right ankle and foot pain, see HPI. INTEGUMENTARY: Reports right foot swelling, see HPI. . Patient History <ADRIA Batista - Last Filed: 02/28/20 19:29> Medical History Clavicle fracture (Acute) HLD (hyperlipidemia) (Acute) Paroxysmal A-fib (Acute) Surgical History H/O vasectomy (Acute) History of arthroplasty of right knee (Acute 07/10/16) Hx of cholecystectomy (Acute) S/P surgical manipulation of knee joint (Acute 10/12/16) S/P trigger finger release (Acute) Status post knee surgery Status post laparoscopic cholecystectomy Social History household members: significant other Smoking Status: Never smoker alcohol intake: current Smoking Status: Never smoker Substance Use Type: does not use Exam <ADRIA Batista - Last Filed: 02/28/20 19:29> Initial Vital Signs Initial Vital Signs: Vital Signs Temperature 98.0 F 02/28/20 10:20 Pulse Rate 86 02/28/20 10:20 Respiratory Rate 18 02/28/20 10:20 Blood Pressure 187/86 H 02/28/20 10:20 Pulse Oximetry 99 02/28/20 10:20 PHYSICAL EXAMINATION: GENERAL: Well groomed, alert, and cooperative. Answers questions promptly and appropriately. Vital signs noted. HENT: Normocephalic, atraumatic. EYES: Symmetrical, sclera white, no periorbital swelling. CARDIOVASCULAR: Regular rate. RESPIRATORY: Normal respiratory rate, trachea midline, airway patent. No stridor, nasal flaring or accessory muscle use. MUSCULOSKELETAL: Moderate swelling noted to right ankle and foot, tenderness noted to right malleolus and left 1st MCP joint. Skin without increased temp or erythema. A 3 cm in diameter scab noted to medial aspect of right thigh, no erythema or purulent drainage, no tenderness to palpation of this wound. Patient able to move toes and ankle but reports increased pain with movement. Calf and foot compartments are soft and none tender with palp. EXTREMITIES: CMS intact. Pedal pulses 2+ and intact bilaterally. SKIN: Warm, dry, soft, appropriate color for ethnicity. No lesions, rashes, or wounds. NEURO: Alert and Oriented X 3. No sensory deficits. PSYCH: Appropriate affect and mood. <Garry Vaughn MD - Last Filed: 03/02/20 07:33> Initial Vital Signs Initial Vital Signs: Vital Signs Temperature 98.0 F 02/28/20 10:20 Pulse Rate 86 02/28/20 10:20 Respiratory Rate 18 02/28/20 10:20 Blood Pressure 187/86 H 02/28/20 10:20 Pulse Oximetry 99 02/28/20 10:20 Course <ADRIA Batista - Last Filed: 02/28/20 19:29> Course Course Narrative: 1115: Discussed symptoms and history with patient, discussed x-ray results and need for laboratory work due to prolonged symptoms. Patient was agreeable to this time. Patient requesting pain medication, reports he tolelrates oral Vicodin well. 1230: Per nursing, patient requesting more pain medication as the Vicodin has not helped at this time. Verbal order given for 0.5mg of Dilaudid 1300: Patient updated about lab results and ultrasound which is ordered. States pain is feeling better after administration of pain medication. Orders Ordered: Discontinued Medications Hydrocodone Bitart/Acetaminophen ([place] 5/325) 1 tab PO NOW ONE Stop: 02/28/20 11:23 Last Admin: 02/28/20 11:37 Dose: 1 tab Documented by: JAMA Hydromorphone HCl (Dilaudid) 0.5 mg IV NOW ONE Stop: 02/28/20 12:29 Last Admin: 02/28/20 12:34 Dose: 0.5 mg Documented by: JAMA Sodium Chloride (Normal Saline 0.9%) 1,000 mls @ 1,000 mls/hr IV BOLUS ONE Stop: 02/28/20 12:21 Last Infusion: 02/28/20 13:14 Dose: 0 mls/hr Documented by: Admin: 02/28/20 11:47 Dose: 1,000 mls/hr Documented by: JAMA Vital Signs Vital signs: Vital Signs - 8 hr 02/28/20 10:20 Temperature 98.0 F Pulse Rate 86 Respiratory Rate 18 Blood Pressure 187/86 H Pulse Oximetry 99 <Garry Vaughn MD - Last Filed: 03/02/20 07:33> Orders Ordered: Discontinued Medications Hydrocodone Bitart/Acetaminophen ([place] 5/325) 1 tab PO NOW ONE Stop: 02/28/20 11:23 Last Admin: 02/28/20 11:37 Dose: 1 tab Documented by: JAMA Hydromorphone HCl (Dilaudid) 0.5 mg IV NOW ONE Stop: 02/28/20 12:29 Last Admin: 02/28/20 12:34 Dose: 0.5 mg Documented by: JAMA Sodium Chloride (Normal Saline 0.9%) 1,000 mls @ 1,000 mls/hr IV BOLUS ONE Stop: 02/28/20 12:21 Last Infusion: 02/28/20 13:14 Dose: 0 mls/hr Documented by: Admin: 02/28/20 11:47 Dose: 1,000 mls/hr Documented by: JAMA Vital Signs Vital signs: Vital Signs - 8 hr 02/28/20 10:20 Temperature 98.0 F Pulse Rate 86 Respiratory Rate 18 Blood Pressure 187/86 H Pulse Oximetry 99 MDM - Extremity (Nontraumatic) <ADRIA Batista - Last Filed: 02/28/20 19:29> Medical Records Attestation: I reviewed the patient's medical records. Lab Data Attestation: I reviewed the patient's lab results. Result diagrams: 02/28/20 11:55 02/28/20 11:55 Labs: Lab Results 02/28/20 02/28/20 02/28/20 Range/Units 11:55 11:55 11:55 WBC 6.8 (4.5-11.0) X10^3/uL RBC 4.13 L (4.5-5.9) X10^6/uL Hgb 13.9 (13.5-17.5) g/dL Hct 39.9 L (41-53) % MCV 96.6 (80-100) fL MCH 33.8 (26-34) PG MCHC 35.0 (30-36) % RDW 12.5 (11.6-14.8) % Plt Count 278 (150-400) X10^3/uL Neut % (Auto) 69.2 (50-75) % Lymph % (Auto) 18.0 L (25-40) % [place] % (Auto) 10.3 (3-14) % Eos % (Auto) 1.8 L (2-4) % Baso % (Auto) 0.7 (0-2) % Neut # (Auto) 4700 (5050-0246) /uL Lymph # (Auto) 1200 (5103-0869) /uL [place] # (Auto) 700 (0-900) /uL Eos # (Auto) 100 (0-450) /uL Baso # (Auto) 0 (0-100) /uL ESR 33 H (0-15) MM/HR D-Dimer 429 H (<230) ng/mL Sodium 139 (137-145) mmol/L Potassium 5.1 (3.4-5.1) mmol/L Chloride 104 (98-107) mmol/L Carbon Dioxide 28 (22-32) mmol/L BUN 28 H (9-20) mg/dL Creatinine 1.13 (0.66-1.25) mg/dL Estimated GFR > 60.0 (>60) mL/min BUN/Creatinine Ratio 24.8 H (6-22) Glucose 108 (80-110) mg/dL Lactate (0.7-2.1) mmol/L Calcium 9.3 (8.4-10.2) mg/dL Total Bilirubin 0.9 (0.2-1.3) mg/dL AST 34 (17-59) IU/L ALT 32 (<50) IU/L Alkaline Phosphatase 58 (38-126) U/L Total Creatine Kinase 89 (55-170) U/L C-Reactive Protein (<1.0) mg/dL Total Protein 7.5 (6.3-8.2) g/dL Albumin 4.3 (3.5-5.0) g/dL Globulin 3.2 (1.7-4.1) g/dL Albumin/Globulin Ratio 1.3 (1.0-2.8) 02/28/20 02/28/20 Range/Units 11:55 11:55 WBC (4.5-11.0) X10^3/uL RBC (4.5-5.9) X10^6/uL Hgb (13.5-17.5) g/dL Hct (41-53) % MCV (80-100) fL MCH (26-34) PG MCHC (30-36) % RDW (11.6-14.8) % Plt Count (150-400) X10^3/uL Neut % (Auto) (50-75) % Lymph % (Auto) (25-40) % [place] % (Auto) (3-14) % Eos % (Auto) (2-4) % Baso % (Auto) (0-2) % Neut # (Auto) (4523-0619) /uL Lymph # (Auto) (1693-8136) /uL [place] # (Auto) (0-900) /uL Eos # (Auto) (0-450) /uL Baso # (Auto) (0-100) /uL ESR (0-15) MM/HR D-Dimer (<230) ng/mL Sodium (137-145) mmol/L Potassium (3.4-5.1) mmol/L Chloride (98-107) mmol/L Carbon Dioxide (22-32) mmol/L BUN (9-20) mg/dL Creatinine (0.66-1.25) mg/dL Estimated GFR (>60) mL/min BUN/Creatinine Ratio (6-22) Glucose (80-110) mg/dL Lactate 0.9 (0.7-2.1) mmol/L Calcium (8.4-10.2) mg/dL Total Bilirubin (0.2-1.3) mg/dL AST (17-59) IU/L ALT (<50) IU/L Alkaline Phosphatase (38-126) U/L Total Creatine Kinase (55-170) U/L C-Reactive Protein 0.8 (<1.0) mg/dL Total Protein (6.3-8.2) g/dL Albumin (3.5-5.0) g/dL Globulin (1.7-4.1) g/dL Albumin/Globulin Ratio (1.0-2.8) [address] Imaging Data Extremity x-ray #1: Radiologist's Impression: [address] [address] XRay Report Signed Patient: Jose De Jesus Richard [facility]#: [id number] : [id number]:[id number] Age/Sex: 69 / MDate of Service: 02/28/20 Loc: ED Accession Number: [id number] Procedure: XR ankle RT min 3V Ordering Provider: Garry Vaughn MD PROCEDURE: XR ANKLE RT MIN 3V INDICATIONS: ankle swelling. no trauma, recent MODS procedure TECHNIQUE: 3 views of the ankle were acquired. COMPARISON: None. FINDINGS: Bones: No fractures or dislocations. Mild tibiotalar degenerative change. Ankle mortise is normally aligned. No suspicious bony lesions. Soft tissues: No tibiotalar joint effusion. Achilles tendon appears normal. No soft tissue gas. Small vessel calcifications suggest possible diabetes. IMPRESSION: No evidence acute bony abnormality of the right ankle If clinical suspicion and/or symptoms persist, further assessment with repeat plain films, or advanced imaging (e.g., CT, MRI, or bone scan) may be helpful for further assessment. Dictated by: Rajinder Daivla M.D. on 02/28/2020 at 10:06 Approved by: Rajinder Davila M.D. on 02/28/2020 at 10:08 Extremity x-ray #2: Radiologist's Impression: [address] [address] XRay Report Signed Patient: Jose De Jesus Richard CMR#: [id number] : [id number] Age/Sex: 69 / MDate of Service: 02/28/20 Loc: ED Accession Number: [id number] Procedure: XR foot RT min 3V Ordering Provider: Garry Vaughn MD PROCEDURE: XR FOOT RT MIN 3V INDICATIONS: swelling, non traumatic TECHNIQUE: 3 views of the foot were acquired. COMPARISON: None. FINDINGS: Bones: No fractures or dislocations. No suspicious bony lesions. No plain film evidence of acute osteomyelitis. Soft tissues: No tibiotalar joint effusion. Achilles tendon appears normal. No radiopaque foreign body. No soft tissue gas. IMPRESSION: No evidence acute bony abnormality of the right foot. If clinical suspicion and/or symptoms persist, further assessment with repeat plain films, or advanced imaging (e.g., CT, MRI, or bone scan) may be helpful for further assessment. Dictated by: Rajinder Davila M.D. on 02/28/2020 at 10:05 Approved by: Rajinder Davila M.D. on 02/28/2020 at 10:06 US - DVT: Radiologist's Impression: [address] [address] Ultrasound Report Signed Patient: Jose De Jesus Richard CMR#: [id number] : 2Acct:[id number] Age/Sex: 69 / MDate of Service: 02/28/20 Loc: ED Accession Number: [id number] Procedure: US periph venous low extrem rt Ordering Provider: Helene García PROCEDURE: US PERIPH VENOUS LOW EXTREM RT INDICATIONS: RIGHT FOOT PAIN AND SWELLING,ELEVATED D DIMER TECHNIQUE: Real-time imaging, as well as color and pulse Doppler interrogation, were performed of the lower extremity deep veins from the inguinal ligament to the popliteal fossa. COMPARISON: None. FINDINGS: The common femoral, femoral and popliteal veins are normally compressible, and free of intraluminal thrombus. Color and pulse Doppler demonstrate normal phas ic intraluminal flow. There is normal augmentation response to distal compression maneuver. IMPRESSION: Negative her right lower extremity duplex venous ultrasound for DVT. Dictated by: Rajinder Davila M.D. on 02/28/2020 at 12:53 Approved by: Rajinder Davila M.D. on 02/28/2020 at 12:57 MDM Narrative Medical decision making narrative: 69-year-old male presenting to the emergency department with right lower leg swelling postprocedure and infection 6 weeks prior. I am unsure the exact cause of swelling, I suspect this is most likely due to venous stasis and post inflammatory etiology from procedure an infection. Less likely DVT due to negative ultrasound and no significant calf tenderness. However, patient was advised to follow up with primary care provider as studies are often repeated in 1 week if symptoms continue. Less likely infection such as cellulitis due to lack of purulent drainage of wou nd, no erythema, no increased temp. Less likely severe infection such as osteomyelitis due to lack of changes on x- ray, no systemic symptoms such as fever or tachycardia, normal white blood cell count, and normal lactate. Less likely inflammatory etiologies such as vasculitis. While ESR is slightly elevated, this lab has been elevated in the past, CRP is within normal limits. Foot with lack of significant erythema or increased temp. Less likely rhabdomyolysis the CPK is within normal limits. Less likely compartment syndrome as calf is nontender and compartments are soft on palpation. Patient was encouraged to follow up with his primary care provider in the next week for further evaluation. He was given a compression Ziyad bandage to help with swelling, he was counseled about importance of elevating his leg. Patient was given pain medication per request. Return precautions given for new or worsening symptoms. Patient agreed to plan of care verbalized understanding. <Garry Vaughn MD - Last Filed: 03/02/20 07:33> Lab Data Labs: Lab Results 02/28/20 02/28/20 02/28/20 Range/Units 11:55 11:55 11:55 WBC 6.8 (4.5-11.0) X10^3/uL RBC 4.13 L (4.5-5.9) X10^6/uL Hgb 13.9 (13.5-17.5) g/dL Hct 39.9 L (41-53) % MCV 96.6 (80-100) fL MCH 33.8 (26-34) PG MCHC 35.0 (30-36) % RDW 12.5 (11.6-14.8) % Plt Count 278 (150-400) X10^3/uL Neut % (Auto) 69.2 (50-75) % Lymph % (Auto) 18.0 L (25-40) % [place] % (Auto) 10.3 (3-14) % Eos % (Auto) 1.8 L (2-4) % Baso % (Auto) 0.7 (0-2) % Neut # (Auto) 4700 (9680-9769) /uL Lymph # (Auto) 1200 (4365-4420) /uL [place] # (Auto) 700 (0-900) /uL Eos # (Auto) 100 (0-450) /uL Baso # (Auto) 0 (0-100) /uL ESR 33 H (0-15) MM/HR D-Dimer 429 H (<230) ng/mL Sodium 139 (137-145) mmol/L Potassium 5.1 (3.4-5.1) mmol/L Chloride 104 (98-107) mmol/L Carbon Dioxide 28 (22-32) mmol/L BUN 28 H (9-20) mg/dL Creatinine 1.13 (0.66-1.25) mg/dL Estimated GFR > 60.0 (>60) mL/min BUN/Creatinine Ratio 24.8 H (6-22) Glucose 108 (80-110) mg/dL Lactate (0.7-2.1) mmol/L Calcium 9.3 (8.4-10.2) mg/dL Total Bilirubin 0.9 (0.2-1.3) mg/dL AST 34 (17-59) IU/L ALT 32 (<50) IU/L Alkaline Phosphatase 58 (38-126) U/L Total Creatine Kinase 89 (55-170) U/L C-Reactive Protein (<1.0) mg/dL Total Protein 7.5 (6.3-8.2) g/dL Albumin 4.3 (3.5-5.0) g/dL Globulin 3.2 (1.7-4.1) g/dL Albumin/Globulin Ratio 1.3 (1.0-2.8) 02/28/20 02/28/20 Range/Units 11:55 11:55 WBC (4.5-11.0) X10^3/uL RBC (4.5-5.9) X10^6/uL Hgb (13.5-17.5) g/dL Hct (41-53) % MCV (80-100) fL MCH (26-34) PG MCHC (30-36) % RDW (11.6-14.8) % Plt Count (150-400) X10^3/uL Neut % (Auto) (50-75) % Lymph % (Auto) (25-40) % [place] % (Auto) (3-14) % Eos % (Auto) (2-4) % Baso % (Auto) (0-2) % Neut # (Auto) (8408-7830) /uL Lymph # (Auto) (0259-7546) /uL [place] # (Auto) (0-900) /uL Eos # (Auto) (0-450) /uL Baso # (Auto) (0-100) /uL ESR (0-15) MM/HR D-Dimer (<230) ng/mL Sodium (137-145) mmol/L Potassium (3.4-5.1) mmol/L Chloride (98-107) mmol/L Carbon Dioxide (22-32) mmol/L BUN (9-20) mg/dL Creatinine (0.66-1.25) mg/dL Estimated GFR (>60) mL/min BUN/Creatinine Ratio (6-22) Glucose (80-110) mg/dL Lactate 0.9 (0.7-2.1) mmol/L Calcium (8.4-10.2) mg/dL Total Bilirubin (0.2-1.3) mg/dL AST (17-59) IU/L ALT (<50) IU/L Alkaline Phosphatase (38-126) U/L Total Creatine Kinase (55-170) U/L C-Reactive Protein 0.8 (<1.0) mg/dL Total Protein (6.3-8.2) g/dL Albumin (3.5-5.0) g/dL Globulin (1.7-4.1) g/dL Albumin/Globulin Ratio (1.0-2.8) Discharge Plan Departure Patient Disposition: Home Clinical Impression: Venous stasis Ankle swelling Qualifiers: Laterality: right Qualified Code(s): M25.471 - Effusion, right ankle Discharge Date/Time: 02/28/20 14:42 Instructions: DI for Edema Due to Venous Stasis Activity Restrictions/Additional Instructions: Thank you for entrusting me with your care today. As discussed, your x-rays are negative for any concerning signs such as fractures or a bone infection. Your laboratory work showed an elevated D-dimer and an ultrasound was obtained which was negative for blood clots at this time. Your laboratory work does not show any signs of infection, one inflammatory marker was elevated which has been elevated for you in the past. Other inflammatory markers are not elevated today. We have given you an Ziyad bandage, I recommend applying this especially at night to help with swelling. Please wrap the bandage from your foot up towards your knee. Monitor your leg closely for any signs of infection such as redness, purulent drainage, or worsening pain, if this occurs please be seen immediately. You have been prescribed a narcotic medication, this medication can make you drowsy. Do not drive while using this medication or perform activities that require mental alertness. These medications can also make you constipated, please use [id number] docusate sodium as needed for constipation. Do not take Tylenol with this medication is Tylenol as included with this pill. You may take ibuprofen as needed for swelling. Please follow-up with your primary care provider this week or next week for further testing and evaluation. Please follow-up with your performance test architect in the next 2 weeks as scheduled. Return to the emergency department for any new or worsening symptoms such as fevers, severe pain, or any other concerns. Prescriptions: New oxycodone-acetaminophen [Percocet] 5-325 mg tablet 1 tab PO Q6H PRN (Reason: pain) Qty: 20 RF: 0 No Action irbesartan-hydrochlorothiazide 300-12.5 mg Tablet 1 tab PO DAILY RF: 0 colchicine 0.6 mg Tablet 0.6 mg PO DAILY PRN (Reason: Gout flareup) RF: 0 vardenafil [Levitra] 10 mg Tablet 10 mg PO DAILY PRN (Reason: Sexual Activity) RF: 0 bisoprolol fumarate 10 mg Tablet 10 mg PO DAILY RF: 0 naproxen sodium [Aleve] 220 mg Capsule 220 mg PO DAILY RF: 0 pravastatin 20 mg tablet 20 mg PO DAILY RF: 0 Referrals: Mika Bright MD [Primary Care Provider] -
[2020-02-28 12:12] LABS: Lactate (Lactic Acid) 0.9 mmol/L (0.7-2.1)
[2020-02-28 12:13] LABS: Alanine Aminotransferase 32 IU/L (<50); Albumin 4.3 g/dL (3.5-5.0); Albumin Globulin Ratio 1.3 (1.0-2.8); Alkaline Phosphatase 58 U/L (38-126); Aspartate Aminotransferase 34 IU/L (17-59); BUN Creatinine Ratio 24.8 (6-22); Bilirubin Total 0.9 mg/dL (0.2-1.3); Blood Urea Nitrogen 28 mg/dL (9-20); Calcium 9.3 mg/dL (8.4-10.2); Carbon Dioxide 28 mmol/L (22-32); Chloride 104 mmol/L (98-107); Creatine Kinase 89 U/L (55-170); Estimated Glomerular Filt Rate > 60.0 mL/min (>60); Globulin 3.2 g/dL (1.7-4.1); Glucose 108 mg/dL (80-110); HEMOLYSIS < 15 (0-50); Potassium 5.1 mmol/L (3.4-5.1); Sodium 139 mmol/L (137-145); Total Protein 7.5 g/dL (6.3-8.2)
[2020-02-28 12:14] LABS: D Dimer 429 ng/mL (<230)
[2020-02-28 12:17] LABS: C-Reactive Protein Quant 0.8 mg/dL (<1.0)
[2020-02-28 12:31] LABS: Erythrocyte Sedimentation Rate 33 MM/HR (0-15)
[2020-02-28] MEDS: HYDROMORPHONE 0.5 MG INJ IV (12:34)
--- NOTE | 2020-02-28 12:43 | DI.US.S_ITS ---
PROCEDURE: US PERIPH VENOUS LOW EXTREM RT INDICATIONS: RIGHT FOOT PAIN AND SWELLING,ELEVATED D DIMER TECHNIQUE: Real-time imaging, as well as color and pulse Doppler interrogation, were performed of the lower extremity deep veins from the inguinal ligament to the popliteal fossa. COMPARISON: None. FINDINGS: The common femoral, femoral and popliteal veins are normally compressible, and free of intraluminal thrombus. Color and pulse Doppler demonstrate normal phasic intraluminal flow. There is normal augmentation response to distal compression maneuver. IMPRESSION: Negative her right lower extremity duplex venous ultrasound for DVT. Dictated by: Rajinder Davila M.D. on 02/28/2020 at 12:53 Approved by: Rajinder Davila M.D. on 02/28/2020 at 12:57
--- NOTE | 2020-02-28 14:41 | PC.NURSE ---
acewrap placed to right lower leg. discussed to patient and how to care for leg at home, and explained signs of infection to watch for. pt and verbalized understanding.
== END 2020-02-28 14:42 | disposition home or self-care (01) ==
PROVIDERS: Emergency Provider Nurse Practitioner; PCP Internal Medicine
DX: I87.8 Other specified disorders of veins (principal); M25.471 Effusion, right ankle
CPT/HCPCS: 36415; 73610; 73630; 80053; 82550; 83605; 85025; 85379; 85651; 86140; 93971; 96361; 96374; 99284; J1170

== ENCOUNTER → 2020-06-23 07:47 | Outpatient (CLI) | payer MEDICARE, OTHER, SELFPAY ==
[2019-07-27 12:19] VITALS: BMI 29.6
[2020-06-23 08:44] LABS: Uric Acid 4.7 mg/dL (3.5-8.5)
[2020-06-28 12:21] LABS: Percent Free Testosterone 3.26 % (1.50-4.20); Testosterone Free 5.45 ng/dL (5.00-21.00); Testosterone Total 167.1 ng/dL (264.0-916.0)
== END ==
PROVIDERS: PCP Internal Medicine; Referring Provider Internal Medicine; Visit Provider Internal Medicine
DX: M10.9 Gout, unspecified (principal); E34.9 Endocrine disorder, unspecified
CPT/HCPCS: 36415; 84402; 84403; 84550

== ENCOUNTER → 2020-09-14 15:17 | Outpatient (ROUT) | payer MEDICARE, OTHER, SELFPAY ==
[2019-07-27 12:19] VITALS: BMI 29.6
[2020-09-14 15:36] LABS: Add Manual Diff / Slide Review NO; Basophils Absolute Auto 100 /uL (0-100); Basophils Percent Auto 0.8 % (0-2); Eosinophils Absolute Auto 0 /uL (0-450); Eosinophils Percent Auto 0.5 % (2-4); Hematocrit 50.1 % (41-53); Hemoglobin 16.4 g/dL (13.5-17.5); Lymphocytes Absolute Auto 1600 /uL (1100-4500); Lymphocytes Percent Auto 17.1 % (25-40); Mean Corpuscular HGB Conc 32.7 % (30-36); Mean Corpuscular Hemoglobin 31.5 PG (26-34); Mean Corpuscular Volume 96.2 fL (80-100); Monocytes Absolute Auto 1100 /uL (0-900); Monocytes Percent Auto 11.8 % (3-14); Neutrophils Absolute Auto 6400 /uL (1500-7000); Neutrophils Percent Auto 69.8 % (50-75); Platelet Count 325 X10^3/uL (150-400); Red Blood Cell Count 5.21 X10^6/uL (4.5-5.9); Red Cell Distribution Width 13.5 % (11.6-14.8); White Blood Cell Count 9.2 X10^3/uL (4.5-11.0)
[2020-09-14 15:38] LABS: Alanine Aminotransferase 36 IU/L (<50); Albumin 4.2 g/dL (3.5-5.0); Albumin Globulin Ratio 1.5 (1.0-2.8); Alkaline Phosphatase 67 U/L (38-126); Aspartate Aminotransferase 36 IU/L (17-59); Bilirubin Total 1.3 mg/dL (0.2-1.3); Blood Urea Nitrogen 22 mg/dL (9-20); Calcium 9.4 mg/dL (8.4-10.2); Carbon Dioxide 31 mmol/L (22-32); Chloride 101 mmol/L (98-107); Cholesterol 204 mg/dL (140-199); Estimated Glomerular Filt Rate > 60.0 mL/min (>60); Globulin 2.8 g/dL (1.7-4.1); Glucose 88 mg/dL (80-110); HDL Cholesterol 59 mg/dL (40-60); HEMOLYSIS < 15 (0-50); LDL Cholesterol Calculated 119 mg/dL (<100); Potassium 4.8 mmol/L (3.4-5.1); Sodium 136 mmol/L (137-145); Triglycerides 130 mg/dL (35-150); Uric Acid 4.7 mg/dL (3.5-8.5)
[2020-09-14 16:07] LABS: Prostate Specific Antigen 1.57 ng/mL (0.10-4.00)
== END ==
PROVIDERS: PCP Internal Medicine; Visit Provider Internal Medicine
DX: E34.9 Endocrine disorder, unspecified (principal); E78.2 Mixed hyperlipidemia; N40.1 Benign prostatic hyperplasia with lower urinary tract symptoms
CPT/HCPCS: 80053; 80061; 84153; 84402; 84403; 84550; 85025

== ENCOUNTER → 2020-10-17 08:08 | Outpatient (CLI) | payer MEDICARE, OTHER, SELFPAY ==
[2019-07-27 12:19] VITALS: BMI 29.6
[2020-10-17 10:17] LABS: BUN Creatinine Ratio 29.9 (6-22); Blood Urea Nitrogen 35 mg/dL (9-20); Calcium 9.8 mg/dL (8.4-10.2); Carbon Dioxide 30 mmol/L (22-32); Chloride 102 mmol/L (98-107); Estimated Glomerular Filt Rate > 60.0 mL/min (>60); Glucose 91 mg/dL (80-110); HEMOLYSIS < 15 (0-50); Potassium 5.3 mmol/L (3.4-5.1); Sodium 137 mmol/L (137-145)
== END ==
PROVIDERS: PCP Internal Medicine; Referring Provider Internal Medicine; Visit Provider Internal Medicine
DX: I10 Essential (primary) hypertension (principal)
CPT/HCPCS: 36415; 80048

== ENCOUNTER → 2020-11-07 19:23 | Outpatient (ROUT) | payer MEDICARE, OTHER, SELFPAY ==
[2019-07-27 12:19] VITALS: BMI 29.6
[2020-11-07 20:17] LABS: BUN Creatinine Ratio 28.3 (6-22); Blood Urea Nitrogen 32 mg/dL (9-20); Calcium 9.6 mg/dL (8.4-10.2); Carbon Dioxide 30 mmol/L (22-32); Chloride 103 mmol/L (98-107); Estimated Glomerular Filt Rate > 60.0 mL/min (>60); Glucose 101 mg/dL (80-110); HEMOLYSIS < 15 (0-50); Potassium 4.7 mmol/L (3.4-5.1); Sodium 137 mmol/L (137-145)
== END ==
PROVIDERS: PCP Internal Medicine; Visit Provider Internal Medicine
DX: I10 Essential (primary) hypertension (principal)
CPT/HCPCS: 80048

== ENCOUNTER → 2021-08-07 08:20 | Outpatient (CLI) | payer MEDICARE, OTHER, SELFPAY ==
[2019-07-27 12:19] VITALS: BMI 29.6
[2021-08-07 12:49] LABS: COVID19 -Nasal RAPID Negative (Negative)
== END ==
PROVIDERS: PCP Internal Medicine; Visit Provider Nurse Practitioner Family
DX: Z20.822 Contact with and (suspected) exposure to COVID-19 (principal)
CPT/HCPCS: 87635; C9803

== ENCOUNTER 2021-08-08 08:49 | Day surgery (SDC) | payer MEDICARE, OTHER, SELFPAY ==
[2019-07-27 12:19] VITALS: BMI 29.6
[2021-08-08] MEDS: PROPARACAINE 0.5% OPHTH SOL 2 DROPS EYE-OP (09:29)
[2021-08-08 09:30] VITALS: BP 192/93; PULSE 62; RESP 14; TEMP 36.4; O2SAT 100; BMI 27.3
[2021-08-08] MEDS: CATARACT EYE COMPOUND (10 DROPS/SYRINGE) 3 DROPS EYE-OP (09:30)
--- NOTE | 2021-08-08 10:28 | PM.PREOP ---
Pre-operative Note Interval Note History & Physical reviewed/Exam performed by Physician: Yes Changes to H&P: No
--- NOTE | 2021-08-08 10:28 | PM.OP.1 ---
Operative Date/Time/Diagnoses Pre-op diagnosis: Nuclear cataract right eye Procedure & Clinicians Procedure: Cataract Surgery Same procedure as scheduled: Yes Surgeon: Miguel Rodriguez Anesthesia Type: MAC +/- and Sedation Operative Notes Procedure in detail: Patient brought to the operating suite. Tetracaine drops placed in the right eye. Marking instrument was used to susy the vertical and horizontal meridians. Patient was prepped and draped in sterile manner. Wire lid speculum was placed in the eye. Betadine drops were placed on the eye. This was irrigated. Lidocaine jelly was placed on the eye. A paracentesis port was created with a side-port blade. 0.1 mL 1% preservative free lidocaine was injected into the anterior chamber. The anterior chamber was deepened with viscoelastic. 2.6 mm keratome was used to create a temporal clear corneal incision. Cystotome and Utrata forceps were used to create continuous tear capsulorrhexis. Balanced salt solution was used to hydro dissect the nucleus. The phacoemulsification handpiece was inserted and the nucleus was removed using the stop and chop technique. The irrigation aspiration handpiece was inserted and the remaining cortex was removed. Anterior chamber was deepened with viscoelastic. An Kauffman [id number] intraocular lens with a power of 12.0 was injected into the capsular bag. Irrigation aspiration handpiece was inserted and the remaining viscoelastic was removed.The lens was rotated to the 90 degree meridian. Incision was hydrated with balanced salt solution and found to be leak free with pressure with Weck-Abby sponges. 0.1 mL Vigamox injected anterior chamber. 0.3 mL Kenalog 10 mg was injected subconjunctivally. Lid speculum was removed. The patient left the operating room in excellent condition. Complications: none Post-operative Condition: stable Disposition: same day surgery
[2021-08-08] MEDS: TRIAMCINOLONE 50 MG/5 ML VIAL INJ (10:40)
[2021-08-08] MEDS: MOXIFLOXACIN INJ 4 MG/0.8 ML VIAL 0.5 MG EYE-OP (10:40)
[2021-08-08] MEDS: PHENYLEPHRINE/LIDOCAINE VIAL (OR) 0.2 ML EYE-OP (10:40)
[2021-08-08] MEDS: HYALURONATE SODIUM 30 MG-10 MG/ML SYRINGES 1 BOX INTRAOCULA (10:40)
[2021-08-08] MEDS: TETRACAINE 0.5% OPHTH DROPS 4 ML 2 DROPS EYE-OP (10:48)
[2021-08-08] MEDS: LIDOCAINE 2% (GLYDO) 6 ML GEL TOP (10:48)
[2021-08-08] MEDS: BALANCED SALT IRRIG SOLN NO.2 500 ML, EPINEPHrine 1 MG IRR (10:48)
[2021-08-08 11:06] VITALS: BP 143/88; PULSE 65; RESP 16; TEMP 36.6; O2SAT 99
--- NOTE | 2021-08-08 11:22 | SUR.PHASEII ---
Pt ready to go, ride available, left unit in stable condition.
== END 2021-08-08 11:20 | disposition home or self-care (01) ==
PROVIDERS: PCP Internal Medicine; Referring Provider Ophthalmology; Visit Provider Ophthalmology
PROC: (CPT 66984; principal; 2021-08-08 10:45)
DX: H25.11 Age-related nuclear cataract, right eye (principal); I10 Essential (primary) hypertension
CPT/HCPCS: 66984; J0171; J2250; J3301; V2787

== ENCOUNTER 2021-08-21 05:33 | Emergency (ER) | payer MEDICARE, OTHER, SELFPAY ==
[2019-07-27 12:19] VITALS: BMI 29.6
[2021-08-21] VITALS (15 sets, daily range): BP systolic 166–204; BP diastolic 83–106; PULSE 61–86; RESP 18–26; TEMP 36.2; O2SAT 93–97; BMI 28.0
--- NOTE | 2021-08-21 05:42 | ED_ITS ---
HPI - SOB/Dyspnea <DO Yusef Russ Last Filed: 08/22/21 01:27> General Chief Complaint: Shortness of Breath/Dyspnea Stated Complaint: fluid in lungs/wheezing x2 days Time Seen by Provider: 08/21/21 05:34 History of Present Illness HPI Narrative: 71-year-old male nonsmoker with history of hypertension and hyperlipidemia presents with the chief complaint of a gurgling sensation in the back of his throat and inability to clear secretions for the past few days. He denies much in the way of other symptoms. He is not dizzy nor weak or lightheaded. He denies headache or blurred vision. Denies any chest pain or noted shortness of breath though he does have a dry cough. He denies chest pain, weight gain or lower extremity edema. He denies any exertional dyspnea or orthopnea. He denies any dietary change or changes medications. Related Data Home Medications Medication Instructions Recorded Confirmed pravastatin 20 mg tablet 20 mg PO DAILY 11/14/18 07/27/19 colchicine 0.6 mg tablet 0.6 mg PO DAILY PRN 07/24/19 07/24/19 irbesartan 300 1 tab PO DAILY 07/24/19 07/27/19 mg-hydrochlorothiazide 12.5 mg tablet vardenafil 10 mg tablet (Levitra) 10 mg PO DAILY PRN 07/24/19 07/24/19 bisoprolol fumarate 10 mg tablet 10 mg PO DAILY 07/27/19 07/27/19 naproxen sodium 220 mg capsule 220 mg PO DAILY 07/27/19 07/27/19 (Aleve) allopurinol 300 mg tablet mg 08/08/21 spironolactone 25 mg tablet mg 08/08/21 Previous Rx's Medication Instructions Recorded oxycodone-acetaminophen 5 mg-325 1 tab PO Q6H PRN #20 tab 02/27/20 mg tablet (Percocet) azithromycin 250 mg tablet See Rx Instructions .ROUTE 08/21/21 .COMPLEX #6 tab Allergies Allergy/AdvReac Type Severity Reaction Status Date / Time amlodipine [From [facility]] Allergy Mild swelling Verified 08/21/21 05:44 ankles Review of Systems <DO Yusef Russ Last Filed: 08/22/21 01:27> Review of Systems Narrative: GENERAL: Denies chills, fatigue, malaise, fever, sweats. HEENT: Denies sinus pain, ear pain, sore throat, difficulty swallowing, dizziness. RESPIRATORY: Denies dyspnea, cough, wheezing, hemoptysis, sputum. CARDIOVASCULAR: Denies chest pain, palpitations, orthopnea, edema, GASTROINTESTINAL: Denies nausea, vomiting, abdominal pain, diarrhea, constipation, melena. : Denies dysuria, frequency, incontinence, hematuria, urinary retention. MUSCULOSKELETAL: denies weakness, joint pain, or bony pain SKIN: Denies rash, skin lesions, or other NEUROLOGIC: Denies weakness, headache, numbness, change in speech, confusion, seizures, incoordination. PSYCHIATRIC: No concerning psychosocial issues. 12 point review of systems is negative except for those stated above Patient History <Tom Guidry DO - Last Filed: 08/22/21 01:27> Medical History (Updated 08/21/21 @ 08:38 by Al Mancini DO) Clavicle fracture HLD (hyperlipidemia) Paroxysmal A-fib Surgical History H/O vasectomy History of arthroplasty of right knee (07/10/16) Hx of cholecystectomy S/P surgical manipulation of knee joint (10/12/16) S/P trigger finger release Status post knee surgery Status post laparoscopic cholecystectomy Social History household members: significant other Smoking Status: Never smoker alcohol intake: current Smoking Status: Never smoker alcohol intake frequency: 0-2 drinks per day Substance Use Type: does not use Exam <Tom Guidry DO - Last Filed: 08/22/21 01:27> Initial Vital Signs Initial Vital Signs: Vital Signs Blood Pressure 204/106 H 08/21/21 05:39 <Al Mancini DO - Last Filed: 08/21/21 08:43> Initial Vital Signs Initial Vital Signs: Vital Signs Blood Pressure 204/106 H 08/21/21 05:39 HENMT Head: normal to inspection and normocephalic Resp Effort & Inspection: normal respiratory effort and not tachypneic Auscultation: rhonchi Cardio Rate: regular rate Rhythm: regular rhythm GI Inspection: normal to inspection Neuro General: patient alert, patient awake and moves all extremities Extrem General: No edema Psych Appearance: grossly normal and well kempt Course <Tom Guidry DO - Last Filed: 08/22/21 01:27> Orders Ordered: Discontinued Medications Furosemide (Furosemide 40 Mg/4 Ml Vial) 40 mg IV NOW ONE Stop: 08/21/21 05:45 Last Admin: 08/21/21 05:51 Dose: 40 mg Documented by: GLEN Nitroglycerin (Nitroglycerin Oint 1 Inch/Gm Oint...G.) 1 inch TOP NOW ONE Stop: 08/21/21 06:03 Last Admin: 08/21/21 06:07 Dose: 1 inch Documented by: MARIBETHSON Vital Signs Vital signs: Vital Signs - 8 hr 08/21/21 05:39 08/21/21 05:40 08/21/21 05:42 Temperature 97.1 F L Pulse Rate 66 69 Respiratory Rate 18 Blood Pressure 204/106 H 204/106 H Pulse Oximetry 97 97 08/21/21 06:00 08/21/21 06:07 08/21/21 06:09 Temperature Pulse Rate 63 86 63 Respiratory Rate 20 21 Blood Pressure 192/88 H Pulse Oximetry 97 96 08/21/21 06:10 08/21/21 06:21 08/21/21 06:30 Temperature Pulse Rate 63 62 Respiratory Rate 18 20 Blood Pressure 192/88 H 181/87 H 186/91 H Pulse Oximetry 97 95 08/21/21 07:00 Temperature Pulse Rate 62 Respiratory Rate 18 Blood Pressure 188/83 H Pulse Oximetry 94 <Al Mancini DO - Last Filed: 08/21/21 08:43> Orders Ordered: Discontinued Medications Furosemide (Furosemide 40 Mg/4 Ml Vial) 40 mg IV NOW ONE Stop: 08/21/21 05:45 Last Admin: 08/21/21 05:51 Dose: 40 mg Documented by: GLEN Nitroglycerin (Nitroglycerin Oint 1 Inch/Gm Oint...G.) 1 inch TOP NOW ONE Stop: 08/21/21 06:03 Last Admin: 08/21/21 06:07 Dose: 1 inch Documented by: MARIBETHSON Vital Signs Vital signs: Vital Signs - 8 hr 08/21/21 05:39 08/21/21 05:40 08/21/21 05:42 Temperature 97.1 F L Pulse Rate 66 69 Respiratory Rate 18 Blood Pressure 204/106 H 204/106 H Pulse Oximetry 97 97 08/21/21 06:00 08/21/21 06:07 08/21/21 06:09 Temperature Pulse Rate 63 86 63 Respiratory Rate 20 21 Blood Pressure 192/88 H Pulse Oximetry 97 96 08/21/21 06:10 08/21/21 06:21 08/21/21 06:30 Temperature Pulse Rate 63 62 Respiratory Rate 18 20 Blood Pressure 192/88 H 181/87 H 186/91 H Pulse Oximetry 97 95 08/21/21 07:00 Temperature Pulse Rate 62 Respiratory Rate 18 Blood Pressure 188/83 H Pulse Oximetry 94 MDM - SOB/Dyspnea <Tom Guidry, DO - Last Filed: 08/22/21 01:27> Lab Data Result diagrams: 08/21/21 05:50 08/21/21 05:50 Labs: Lab Results 08/21/21 08/21/21 08/21/21 Range/Units 05:38 05:50 05:50 WBC 5.0 (4.5-11.0) X10^3/uL RBC 4.05 L (4.5-5.9) X10^6/uL Hgb 13.2 L (13.5-17.5) g/dL Hct 39.4 L (41-53) % MCV 97.4 (80-100) fL MCH 32.7 (26-34) PG MCHC 33.5 (30-36) % RDW 13.4 (11.6-14.8) % Plt Count 193 (150-400) X10^3/uL Neut % (Auto) 48.3 L (50-75) % Lymph % (Auto) 32.2 (25-40) % [place] % (Auto) 13.8 (3-14) % Eos % (Auto) 4.6 H (2-4) % Baso % (Auto) 1.1 (0-2) % Neut # (Auto) 2400 (0307-3529) /uL Lymph # (Auto) 1600 (7002-5908) /uL [place] # (Auto) 700 (0-900) /uL Eos # (Auto) 200 (0-450) /uL Baso # (Auto) 100 (0-100) /uL D-Dimer (<230) ng/mL Sodium 140 (137-145) mmol/L Potassium 4.6 (3.4-5.1) mmol/L Chloride 107 (98-107) mmol/L Carbon Dioxide 25 (22-32) mmol/L BUN 28 H (9-20) mg/dL Creatinine 0.95 (0.66-1.25) mg/dL Estimated GFR > 60.0 (>60) mL/min BUN/Creatinine Ratio 29.5 H (6-22) Glucose 93 (80-110) mg/dL Lactate (0.7-2.1) mmol/L Calcium 9.1 (8.4-10.2) mg/dL Magnesium 1.6 (1.6-2.3) mg/dL Total Bilirubin 1.1 (0.2-1.3) mg/dL AST 37 (17-59) IU/L ALT 40 (<50) IU/L Alkaline Phosphatase 58 (38-126) U/L Total Creatine Kinase 138 (55-170) U/L CK-MB (CK-2) 2.71 H (<2.37) ng/mL CK-MB (CK-2) Rel Index 2.0 (1.5-5.0) % Troponin I < 0.012 (0.01-0.034) ng/mL NT-Pro-B Natriuret Pep 488 H (<125) pg/mL Total Protein 7.2 (6.3-8.2) g/dL Albumin 4.4 (3.5-5.0) g/dL Globulin 2.8 (1.7-4.1) g/dL Albumin/Globulin Ratio 1.6 (1.0-2.8) Procalcitonin (<0.5) ng/mL SARS-CoV-2 (PCR) Negative (Negative) 08/21/21 08/21/21 08/21/21 Range/Units 05:50 05:50 05:50 WBC (4.5-11.0) X10^3/uL RBC (4.5-5.9) X10^6/uL Hgb (13.5-17.5) g/dL Hct (41-53) % MCV (80-100) fL MCH (26-34) PG MCHC (30-36) % RDW (11.6-14.8) % Plt Count (150-400) X10^3/uL Neut % (Auto) (50-75) % Lymph % (Auto) (25-40) % [place] % (Auto) (3-14) % Eos % (Auto) (2-4) % Baso % (Auto) (0-2) % Neut # (Auto) (4812-8731) /uL Lymph # (Auto) (1761-7974) /uL [place] # (Auto) (0-900) /uL Eos # (Auto) (0-450) /uL Baso # (Auto) (0-100) /uL D-Dimer 379 H (<230) ng/mL Sodium (137-145) mmol/L Potassium (3.4-5.1) mmol/L Chloride (98-107) mmol/L Carbon Dioxide (22-32) mmol/L BUN (9-20) mg/dL Creatinine (0.66-1.25) mg/dL Estimated GFR (>60) mL/min BUN/Creatinine Ratio (6-22) Glucose (80-110) mg/dL Lactate 0.7 (0.7-2.1) mmol/L Calcium (8.4-10.2) mg/dL Magnesium (1.6-2.3) mg/dL Total Bilirubin (0.2-1.3) mg/dL AST (17-59) IU/L ALT (<50) IU/L Alkaline Phosphatase (38-126) U/L Total Creatine Kinase (55-170) U/L CK-MB (CK-2) (<2.37) ng/mL CK-MB (CK-2) Rel Index (1.5-5.0) % Troponin I (0.01-0.034) ng/mL NT-Pro-B Natriuret Pep (<125) pg/mL Total Protein (6.3-8.2) g/dL Albumin (3.5-5.0) g/dL Globulin (1.7-4.1) g/dL Albumin/Globulin Ratio (1.0-2.8) Procalcitonin 0.08 (<0.5) ng/mL SARS-CoV-2 (PCR) (Negative) 08/21/21 Range/Units 07:40 WBC (4.5-11.0) X10^3/uL RBC (4.5-5.9) X10^6/uL Hgb (13.5-17.5) g/dL Hct (41-53) % MCV (80-100) fL MCH (26-34) PG MCHC (30-36) % RDW (11.6-14.8) % Plt Count (150-400) X10^3/uL Neut % (Auto) (50-75) % Lymph % (Auto) (25-40) % [place] % (Auto) (3-14) % Eos % (Auto) (2-4) % Baso % (Auto) (0-2) % Neut # (Auto) (5868-0089) /uL Lymph # (Auto) (2109-7208) /uL [place] # (Auto) (0-900) /uL Eos # (Auto) (0-450) /uL Baso # (Auto) (0-100) /uL D-Dimer (<230) ng/mL Sodium (137-145) mmol/L Potassium (3.4-5.1) mmol/L Chloride (98-107) mmol/L Carbon Dioxide (22-32) mmol/L BUN (9-20) mg/dL Creatinine (0.66-1.25) mg/dL Estimated GFR (>60) mL/min BUN/Creatinine Ratio (6-22) Glucose (80-110) mg/dL Lactate (0.7-2.1) mmol/L Calcium (8.4-10.2) mg/dL Magnesium (1.6-2.3) mg/dL Total Bilirubin (0.2-1.3) mg/dL AST (17-59) IU/L ALT (<50) IU/L Alkaline Phosphatase (38-126) U/L Total Creatine Kinase (55-170) U/L CK-MB (CK-2) (<2.37) ng/mL CK-MB (CK-2) Rel Index (1.5-5.0) % Troponin I < 0.012 (0.01-0.034) ng/mL NT-Pro-B Natriuret Pep (<125) pg/mL Total Protein (6.3-8.2) g/dL Albumin (3.5-5.0) g/dL Globulin (1.7-4.1) g/dL Albumin/Globulin Ratio (1.0-2.8) Procalcitonin (<0.5) ng/mL SARS-CoV-2 (PCR) (Negative) Urine Dip Bedside Urine Glucose Negative Bedside Urine Bilirubin - Negative Bedside Urine Ketone - Negative Urine Specific [place] 1.015 Bedside Urine Occult Blood - Negative Bedside Urine pH 6.0 Bedside Urine Protein - Negative Bedside Urine Urobilinogen - Negative Bedside Urine Nitrite - Negative Bedside Urine Leukocytes - Negative Esterase <Al Mancini DO - Last Filed: 08/21/21 08:43> Lab Data Labs: Lab Results 08/21/21 08/21/21 08/21/21 Range/Units 05:38 05:50 05:50 WBC 5.0 (4.5-11.0) X10^3/uL RBC 4.05 L (4.5-5.9) X10^6/uL Hgb 13.2 L (13.5-17.5) g/dL Hct 39.4 L (41-53) % MCV 97.4 (80-100) fL MCH 32.7 (26-34) PG MCHC 33.5 (30-36) % RDW 13.4 (11.6-14.8) % Plt Count 193 (150-400) X10^3/uL Neut % (Auto) 48.3 L (50-75) % Lymph % (Auto) 32.2 (25-40) % [place] % (Auto) 13.8 (3-14) % Eos % (Auto) 4.6 H (2-4) % Baso % (Auto) 1.1 (0-2) % Neut # (Auto) 2400 (7795-6035) /uL Lymph # (Auto) 1600 (3201-9975) /uL [place] # (Auto) 700 (0-900) /uL Eos # (Auto) 200 (0-450) /uL Baso # (Auto) 100 (0-100) /uL D-Dimer (<230) ng/mL Sodium 140 (137-145) mmol/L Potassium 4.6 (3.4-5.1) mmol/L Chloride 107 (98-107) mmol/L Carbon Dioxide 25 (22-32) mmol/L BUN 28 H (9-20) mg/dL Creatinine 0.95 (0.66-1.25) mg/dL Estimated GFR > 60.0 (>60) mL/min BUN/Creatinine Ratio 29.5 H (6-22) Glucose 93 (80-110) mg/dL Lactate (0.7-2.1) mmol/L Calcium 9.1 (8.4-10.2) mg/dL Magnesium 1.6 (1.6-2.3) mg/dL Total Bilirubin 1.1 (0.2-1.3) mg/dL AST 37 (17-59) IU/L ALT 40 (<50) IU/L Alkaline Phosphatase 58 (38-126) U/L Total Creatine Kinase 138 (55-170) U/L CK-MB (CK-2) 2.71 H (<2.37) ng/mL CK-MB (CK-2) Rel Index 2.0 (1.5-5.0) % Troponin I < 0.012 (0.01-0.034) ng/mL NT-Pro-B Natriuret Pep 488 H (<125) pg/mL Total Protein 7.2 (6.3-8.2) g/dL Albumin 4.4 (3.5-5.0) g/dL Globulin 2.8 (1.7-4.1) g/dL Albumin/Globulin Ratio 1.6 (1.0-2.8) Procalcitonin (<0.5) ng/mL SARS-CoV-2 (PCR) Negative (Negative) 08/21/21 08/21/21 08/21/21 Range/Units 05:50 05:50 05:50 WBC (4.5-11.0) X10^3/uL RBC (4.5-5.9) X10^6/uL Hgb (13.5-17.5) g/dL Hct (41-53) % MCV (80-100) fL MCH (26-34) PG MCHC (30-36) % RDW (11.6-14.8) % Plt Count (150-400) X10^3/uL Neut % (Auto) (50-75) % Lymph % (Auto) (25-40) % [place] % (Auto) (3-14) % Eos % (Auto) (2-4) % Baso % (Auto) (0-2) % Neut # (Auto) (9590-1663) /uL Lymph # (Auto) (5428-9418) /uL [place] # (Auto) (0-900) /uL Eos # (Auto) (0-450) /uL Baso # (Auto) (0-100) /uL D-Dimer 379 H (<230) ng/mL Sodium (137-145) mmol/L Potassium (3.4-5.1) mmol/L Chloride (98-107) mmol/L Carbon Dioxide (22-32) mmol/L BUN (9-20) mg/dL Creatinine (0.66-1.25) mg/dL Estimated GFR (>60) mL/min BUN/Creatinine Ratio (6-22) Glucose (80-110) mg/dL Lactate 0.7 (0.7-2.1) mmol/L Calcium (8.4-10.2) mg/dL Magnesium (1.6-2.3) mg/dL Total Bilirubin (0.2-1.3) mg/dL AST (17-59) IU/L ALT (<50) IU/L Alkaline Phosphatase (38-126) U/L Total Creatine Kinase (55-170) U/L CK-MB (CK-2) (<2.37) ng/mL CK-MB (CK-2) Rel Index (1.5-5.0) % Troponin I (0.01-0.034) ng/mL NT-Pro-B Natriuret Pep (<125) pg/mL Total Protein (6.3-8.2) g/dL Albumin (3.5-5.0) g/dL Globulin (1.7-4.1) g/dL Albumin/Globulin Ratio (1.0-2.8) Procalcitonin 0.08 (<0.5) ng/mL SARS-CoV-2 (PCR) (Negative) 08/21/21 Range/Units 07:40 WBC (4.5-11.0) X10^3/uL RBC (4.5-5.9) X10^6/uL Hgb (13.5-17.5) g/dL Hct (41-53) % MCV (80-100) fL MCH (26-34) PG MCHC (30-36) % RDW (11.6-14.8) % Plt Count (150-400) X10^3/uL Neut % (Auto) (50-75) % Lymph % (Auto) (25-40) % [place] % (Auto) (3-14) % Eos % (Auto) (2-4) % Baso % (Auto) (0-2) % Neut # (Auto) (1884-7561) /uL Lymph # (Auto) (5533-8061) /uL [place] # (Auto) (0-900) /uL Eos # (Auto) (0-450) /uL Baso # (Auto) (0-100) /uL D-Dimer (<230) ng/mL Sodium (137-145) mmol/L Potassium (3.4-5.1) mmol/L Chloride (98-107) mmol/L Carbon Dioxide (22-32) mmol/L BUN (9-20) mg/dL Creatinine (0.66-1.25) mg/dL Estimated GFR (>60) mL/min BUN/Creatinine Ratio (6-22) Glucose (80-110) mg/dL Lactate (0.7-2.1) mmol/L Calcium (8.4-10.2) mg/dL Magnesium (1.6-2.3) mg/dL Total Bilirubin (0.2-1.3) mg/dL AST (17-59) IU/L ALT (<50) IU/L Alkaline Phosphatase (38-126) U/L Total Creatine Kinase (55-170) U/L CK-MB (CK-2) (<2.37) ng/mL CK-MB (CK-2) Rel Index (1.5-5.0) % Troponin I < 0.012 (0.01-0.034) ng/mL NT-Pro-B Natriuret Pep (<125) pg/mL Total Protein (6.3-8.2) g/dL Albumin (3.5-5.0) g/dL Globulin (1.7-4.1) g/dL Albumin/Globulin Ratio (1.0-2.8) Procalcitonin (<0.5) ng/mL SARS-CoV-2 (PCR) (Negative) Urine Dip Bedside Urine Glucose Negative Bedside Urine Bilirubin - Negative Bedside Urine Ketone - Negative Urine Specific [place] 1.015 Bedside Urine Occult Blood - Negative Bedside Urine pH 6.0 Bedside Urine Protein - Negative Bedside Urine Urobilinogen - Negative Bedside Urine Nitrite - Negative Bedside Urine Leukocytes - Negative Esterase Imaging Data CT scan - chest: Radiologist's Impression: [address] [address] [address] Scan Report Signed Patient: Jose De Jesus Richard MR#: [id number] : 1950 Acct:[id number] Age/Sex: 71 / M Date of Service: 08/21/21 Loc: ED Accession Number: [id number] ?? Procedure: CT angio chest PE protocol Ordering Provider: Tom Guidry D.O. PROCEDURE:? CT ANGIO CHEST PE PROTOCOL ? INDICATIONS:? SOB, acute CHF, elevated DDimer ? TECHNIQUE:? After the administration of intravenous contrast, 2 mm thick sections acquired from the pulmonary apices to the posterior costophrenic angles.? 3-dimensional maximum intensity projection (MIP) coronal and sagittal reformats were then acquired through the thorax.? For radiation dose reduction, the following was used:? automated exposure control, adjustment of mA and/or kV according to patient size.? ? COMPARISON:? [facility], CR, CHEST 2 VIEW, 11/11/2017, 9:42.? [facility], CT, ABDOMEN W AND WO PELVIS W, 07/01/2015, 14:46.? [facility], CR, XR CHEST 2V, 08/21/2021, 5:58. ? FINDINGS:? Image quality:? Excellent.? ? Pulmonary arteries:? Pulmonary arteries are normal in size, and demonstrate no intraluminal filling defects to suggest central pulmonary embolism.? ? Lungs and pleura:? Right middle lobe airspace opacity suspicious for pneumonia.? Lingular and right middle lobe scars and atelectasis.? No pleural effusions or pneumothorax.? Central and peripheral airways are patent.? ? Mediastinum:? Heart size is normal, without pericardial effusion.? Mild coronary artery calcification.? No mediastinal or hilar adenopathy.? Thoracic aorta is normal in caliber and enhancement.? Esophagus is normal in caliber.? Small hiatal hernia.? ? Bones and chest wall:? No suspicious bony lesions.? Ribs and thoracic spine ap pear intact throughout.? Thyroid gland is normal.? No axillary or supraclavicular adenopathy.? ? Abdomen:? Visualized upper abdominal solid organs appear normal in the early arterial phase of enhancement.? ? IMPRESSION:? ? 1. No evidence for pulmonary embolism. 2. Right middle lobe airspace opacity suspicious for pneumonia. 3. Lingular and right middle lobe scars and atelectasis.? Dictated by: Jhonny Lugo M.D. on 08/21/2021 at 7:49 ? ? Approved by: Jhonny Lugo M.D. on 08/21/2021 at 7:58? Chest x-ray: Radiologist's Impression: [address] [address] XRay Report Signed Patient: Jose De Jesus Richard MR#: [id number] : 1950 Acct:[id number] Age/Sex: 71 / M Date of Service: 08/21/21 Loc: ED Accession Number: [id number] ?? Procedure: XR chest 2V Ordering Provider: Tom Guidry D.O. PROCEDURE:? XR CHEST 2V ? INDICATIONS:? SOB ? TECHNIQUE:? 2 views of the chest were acquired.? ? COMPARISON:? [facility], , CHEST 2 VIEW, 11/11/2017, 9:42. ? FINDINGS:? ? Surgical changes and devices:? None.? ? Lungs and pleura:? Submaximal inspiration.? Patchy bibasilar atelectasis..? No pleural effusions or pneumothorax.? ? Mediastinum:? Mediastinal contours are normal.? Heart size is normal.? ? Bones and chest wall:? No suspicious bony abnormalities.? Soft tissues appear unremarkable.? ? IMPRESSION:? Submaximal inspiration.? Patchy bibasilar atelectasis. ? Comment: Final report is concordant with preliminary interpretation provided by [facility]. ? ? Dictated by: Rajinder Davila M.D. on 08/21/2021 at 7:58 ? ? Approved by: Rajinder Davila M.D. on 08/21/2021 at 7:59?? ECG Data Attestation: I personally reviewed and interpreted this ECG as follows: Prior ECG tracings: not available for review Interpretation: Sinus rhythm Ventricular rate is 64 Normal axis Normal QRS Normal QTC No ST T wave changes MDM Narrative Medical decision making narrative: Dr mancini: Received turned over reviewed patient's history and physical exam and labs. EKG is unremarkable. Troponins negative x2. CT scan shows findings consistent with pneumonia. Despite the fact he does not have a fever no leukocytosis he does have a productive cough and given the findings of the CT scan I do feel treating with antibiotics is warranted. Did discuss this with the patient. We did discuss other symptom t reatment. He was given return precautions. He expressed understanding and agreement. Discharge Plan Departure Patient Disposition: Home Clinical Impression: Pneumonia Instructions: DI for Pneumonia -- Adult Activity Restrictions/Additional Instructions: You can try [id number] mucolytic such as Mucinex. Take the antibiotic as directed. Continue the rest of your medications as directed. Return to the emergency department for any new or worsening symptoms Prescriptions: New azithromycin 250 mg tablet See Rx Instructions .ROUTE .COMPLEX Qty: 6 RF: 0 No Action irbesartan-hydrochlorothiazide 300-12.5 mg Tablet 1 tab PO DAILY RF: 0 colchicine 0.6 mg Tablet 0.6 mg PO DAILY PRN (Reason: Gout flareup) RF: 0 vardenafil [Levitra] 10 mg Tablet 10 mg PO DAILY PRN (Reason: Sexual Activity) RF: 0 bisoprolol fumarate 10 mg Tablet 10 mg PO DAILY RF: 0 naproxen sodium [Aleve] 220 mg Capsule 220 mg PO DAILY RF: 0 oxycodone-acetaminophen [Percocet] 5-325 mg tablet 1 tab PO Q6H PRN (Reason: pain) Qty: 20 RF: 0 allopurinol 300 mg tablet RF: 0 spironolactone 25 mg tablet RF: 0 pravastatin 20 mg tablet 20 mg PO DAILY RF: 0 Referrals: Mika Bright MD [Primary Care Provider] -
--- NOTE | 2021-08-21 05:43 | DI.RAD.S_ITS ---
PROCEDURE: XR CHEST 2V INDICATIONS: SOB TECHNIQUE: 2 views of the chest were acquired. COMPARISON: [facility], , CHEST 2 VIEW, 11/11/2017, 9:42. FINDINGS: Surgical changes and devices: None. Lungs and pleura: Submaximal inspiration. Patchy bibasilar atelectasis.. No pleural effusions or pneumothorax. Mediastinum: Mediastinal contours are normal. Heart size is normal. Bones and chest wall: No suspicious bony abnormalities. Soft tissues appear unremarkable. IMPRESSION: Submaximal inspiration. Patchy bibasilar atelectasis. Comment: Final report is concordant with preliminary interpretation provided by [facility]. Dictated by: Rajinder Davila M.D. on 08/21/2021 at 7:58 Approved by: Rajinder Davila M.D. on 08/21/2021 at 7:59
[2021-08-21] MEDS: FUROSEMIDE 40 MG/4 ML VIAL IV (05:51)
[2021-08-21 05:56] LABS: COVID19 -Nasal RAPID Negative (Negative)
[2021-08-21 06:01] LABS: Add Manual Diff / Slide Review NO; Basophils Absolute Auto 100 /uL (0-100); Basophils Percent Auto 1.1 % (0-2); Eosinophils Absolute Auto 200 /uL (0-450); Eosinophils Percent Auto 4.6 % (2-4); Hematocrit 39.4 % (41-53); Hemoglobin 13.2 g/dL (13.5-17.5); Lymphocytes Absolute Auto 1600 /uL (1100-4500); Lymphocytes Percent Auto 32.2 % (25-40); Mean Corpuscular HGB Conc 33.5 % (30-36); Mean Corpuscular Hemoglobin 32.7 PG (26-34); Mean Corpuscular Volume 97.4 fL (80-100); Monocytes Absolute Auto 700 /uL (0-900); Monocytes Percent Auto 13.8 % (3-14); Neutrophils Absolute Auto 2400 /uL (1500-7000); Neutrophils Percent Auto 48.3 % (50-75); Platelet Count 193 X10^3/uL (150-400); Red Blood Cell Count 4.05 X10^6/uL (4.5-5.9); Red Cell Distribution Width 13.4 % (11.6-14.8)
[2021-08-21] MEDS: NITROGLYCERIN OINT 1 INCH/GM OINT...G. TOP (06:07)
[2021-08-21 06:10] LABS: D Dimer 379 ng/mL (<230)
[2021-08-21 06:12] LABS: Alanine Aminotransferase 40 IU/L (<50); Albumin 4.4 g/dL (3.5-5.0); Albumin Globulin Ratio 1.6 (1.0-2.8); Alkaline Phosphatase 58 U/L (38-126); Aspartate Aminotransferase 37 IU/L (17-59); BUN Creatinine Ratio 29.5 (6-22); Bilirubin Total 1.1 mg/dL (0.2-1.3); Blood Urea Nitrogen 28 mg/dL (9-20); Calcium 9.1 mg/dL (8.4-10.2); Carbon Dioxide 25 mmol/L (22-32); Chloride 107 mmol/L (98-107); Creatine Kinase 138 U/L (55-170); Estimated Glomerular Filt Rate > 60.0 mL/min (>60); Globulin 2.8 g/dL (1.7-4.1); Glucose 93 mg/dL (80-110); HEMOLYSIS 35 (0-50); Lactate (Lactic Acid) 0.7 mmol/L (0.7-2.1); Magnesium 1.6 mg/dL (1.6-2.3); Potassium 4.6 mmol/L (3.4-5.1); Sodium 140 mmol/L (137-145); Total Protein 7.2 g/dL (6.3-8.2)
[2021-08-21 06:23] LABS: NT-proBNP (BNP-Adult 18+) 488 pg/mL (<125); Troponin I < 0.012 ng/mL (0.01-0.034)
[2021-08-21 06:27] LABS: Creatine Kinase MB 2.71 ng/mL (<2.37)
[2021-08-21 06:52] LABS: Procalcitonin 0.08 ng/mL (<0.5)
--- NOTE | 2021-08-21 07:30 | DI.CT.S_ITS ---
PROCEDURE: CT ANGIO CHEST PE PROTOCOL INDICATIONS: SOB, acute CHF, elevated DDimer TECHNIQUE: After the administration of intravenous contrast, 2 mm thick sections acquired from the pulmonary apices to the posterior costophrenic angles. 3-dimensional maximum intensity projection (MIP) coronal and sagittal reformats were then acquired through the thorax. For radiation dose reduction, the following was used: automated exposure control, adjustment of mA and/or kV according to patient size. COMPARISON: [facility], CR, CHEST 2 VIEW, 11/11/2017, 9:42. [facility], CT, ABDOMEN W AND WO PELVIS W, 07/01/2015, 14:46. [facility], CR, XR CHEST 2V, 08/21/2021, 5:58. FINDINGS: Image quality: Excellent. Pulmonary arteries: Pulmonary arteries are normal in size, and demonstrate no intraluminal filling defects to suggest central pulmonary embolism. Lungs and pleura: Right middle lobe airspace opacity suspicious for pneumonia. Lingular and right middle lobe scars and atelectasis. No pleural effusions or pneumothorax. Central and peripheral airways are patent. Mediastinum: Heart size is normal, without pericardial effusion. Mild coronary artery calcification. No mediastinal or hilar adenopathy. Thoracic aorta is normal in caliber and enhancement. Esophagus is normal in caliber. Small hiatal hernia. Bones and chest wall: No suspicious bony lesions. Ribs and thoracic spine appear intact throughout. Thyroid gland is normal. No axillary or supraclavicular adenopathy. Abdomen: Visualized upper abdominal solid organs appear normal in the early arterial phase of enhancement. IMPRESSION: 1. No evidence for pulmonary embolism. 2. Right middle lobe airspace opacity suspicious for pneumonia. 3. Lingular and right middle lobe scars and atelectasis. Dictated by: Jhonny Lugo M.D. on 08/21/2021 at 7:49 Approved by: Jhonny Lugo M.D. on 08/21/2021 at 7:58
[2021-08-21 08:26] LABS: Troponin I < 0.012 ng/mL (0.01-0.034)
== END 2021-08-21 09:09 | disposition home or self-care (01) ==
PROVIDERS: Emergency Medicine; Emergency Provider Emergency Medicine; PCP Internal Medicine
DX: J18.9 Pneumonia, unspecified organism (principal); I10 Essential (primary) hypertension; Z20.822 Contact with and (suspected) exposure to COVID-19
CPT/HCPCS: 36415; 71046; 71275; 80053; 81003; 82550; 82553; 83605; 83735; 83880; 84145; 84484; 85025; 85379; 87635; 93005; 96374; 99284; C9803; J1940

== ENCOUNTER → 2021-09-18 08:43 | Outpatient (CLI) | payer MEDICARE, OTHER, SELFPAY ==
[2019-07-27 12:19] VITALS: BMI 29.6
[2021-09-18 11:56] LABS: COVID19 -Nasal RAPID Negative (Negative)
== END ==
PROVIDERS: PCP Internal Medicine; Visit Provider Nurse Practitioner Family
DX: Z20.822 Contact with and (suspected) exposure to COVID-19 (principal)
CPT/HCPCS: 87635; C9803

== ENCOUNTER 2021-09-19 07:52 | Day surgery (SDC) | payer MEDICARE, OTHER, SELFPAY ==
[2019-07-27 12:19] VITALS: BMI 29.6
[2021-09-19] MEDS: PROPARACAINE 0.5% OPHTH SOL 2 DROPS EYE-OP (07:45)
[2021-09-19 08:39] VITALS: BP 158/87; PULSE 65; RESP 18; TEMP 36.1; O2SAT 98; BMI 27.8
[2021-09-19] MEDS: CATARACT EYE COMPOUND (10 DROPS/SYRINGE) 3 DROPS EYE-OP (08:45)
--- NOTE | 2021-09-19 09:30 | PM.PREOP ---
Pre-operative Note Interval Note History & Physical reviewed/Exam performed by Physician: Yes Changes to H&P: No
--- NOTE | 2021-09-19 09:31 | P.OP_ITS ---
Operative Date/Time/Diagnoses Pre-op diagnosis: Nuclear Cataract Left eye Post-op diagnosis: same Procedure & Clinicians Same procedure as scheduled: Yes Surgeon: Miguel Rodriguez Anesthesia Type: MAC +/- and Sedation Operative Notes Procedure in detail: Patient brought to the operating suite. Tetracaine drops placed in the left eye. Marking instrument was used to susy vertical and horizontal meridians. Patient was prepped and draped in sterile manner. Wire lid speculum was placed in the eye. Betadine drops were placed on the eye. This was irrigated. Lidocaine jelly was placed on the eye. A paracentesis port was created with a side-port blade. 0.1 mL 1% preservative free lidocaine was injected into the anterior chamber. The anterior chamber was deepened with viscoelastic. 2.6 mm keratome was used to create a temporal clear corneal incision. Cystotome and Utrata forceps were used to create continuous tear capsulorrhexis. Balanced salt solution was used to hydro dissect the nucleus. The phacoemulsification handpiece was inserted and the nucleus was removed using the stop and chop technique. The irrigation aspiration handpiece was inserted and the remaining cortex was removed. Anterior chamber was deepened with viscoelastic. An Kauffman UMP384 intraocular lens with a power of 13.0 was injected into the capsular bag. Irrigation aspiration handpiece was inserted and the remaining viscoelastic was removed. The lens was rotated to the 90 degree meridian. Incision was hydrated with balanced salt solution and found to be leak free with pressure with Weck- Abby sponges. 0.1 mL Vigamox injected anterior chamber. 0.3 mL Kenalog 10 mg was injected subconjunctivally. Lid speculum was removed. The patient left the operating room in excellent condition. Complications: none Post-operative Condition: stable Disposition: same day surgery
[2021-09-19] MEDS: PHENYLEPHRINE/LIDOCAINE VIAL (OR) 0.2 ML EYE-OP (09:52)
[2021-09-19] MEDS: MOXIFLOXACIN INJ 4 MG/0.8 ML VIAL 0.5 MG EYE-OP (09:52)
[2021-09-19] MEDS: HYALURONATE SODIUM 30 MG-10 MG/ML SYRINGES 1 BOX INTRAOCULA (09:52)
[2021-09-19] MEDS: TETRACAINE 0.5% OPHTH DROPS 4 ML 2 DROPS EYE-OP (09:53)
[2021-09-19] MEDS: TRIAMCINOLONE 50 MG/5 ML VIAL INJ (09:53)
[2021-09-19] MEDS: BALANCED SALT IRRIG SOLN NO.2 500 ML, EPINEPHrine 1 MG IRR (09:53)
[2021-09-19] MEDS: LIDOCAINE 2% (GLYDO) 6 ML GEL TOP (09:54)
[2021-09-19 10:14] VITALS: BP 138/74; PULSE 56; RESP 16; TEMP 36.7; O2SAT 98
== END 2021-09-19 10:16 | disposition home or self-care (01) ==
PROVIDERS: PCP Internal Medicine; Referring Provider Ophthalmology; Visit Provider Ophthalmology
PROC: (CPT 66984; principal; 2021-09-19 09:45)
DX: H25.12 Age-related nuclear cataract, left eye (principal); I10 Essential (primary) hypertension
CPT/HCPCS: 66984; J0171; J2250; J3301; V2787

== ENCOUNTER → 2022-10-17 10:26 | Outpatient (CLI) | payer MEDICARE, OTHER, SELFPAY ==
[2019-07-27 12:19] VITALS: BMI 29.6
[2022-10-17 11:54] LABS: Hemoglobin 13.5 g/dL (13.5-17.5); Mean Corpuscular Hemoglobin 32.7 PG (26-34); Mean Corpuscular Volume 99.3 fL (80-100); Platelet Count 225 X10^3/uL (150-400); Red Blood Cell Count 4.13 X10^6/uL (4.5-5.9); Red Cell Distribution Width 13.8 % (11.6-14.8); White Blood Cell Count 4.8 X10^3/uL (4.5-11.0)
[2022-10-17 12:22] LABS: Alanine Aminotransferase 33 IU/L (<50); Albumin 4.4 g/dL (3.5-5.0); Albumin Globulin Ratio 1.5 (1.0-2.8); Alkaline Phosphatase 59 U/L (38-126); Aspartate Aminotransferase 29 IU/L (17-59); BUN Creatinine Ratio 22.1 (6-22); Bilirubin Total 2.1 mg/dL (0.2-1.3); Blood Urea Nitrogen 23 mg/dL (9-20); Calcium 9.5 mg/dL (8.4-10.2); Carbon Dioxide 33 mmol/L (22-32); Chloride 101 mmol/L (98-107); Cholesterol 209 mg/dL (140-199); Estimated Glomerular Filt Rate > 60 mL/min (>60); Globulin 2.9 g/dL (1.7-4.1); Glucose 96 mg/dL (80-110); HDL Cholesterol 67 mg/dL (40-60); HEMOLYSIS < 15 (0-50); LDL Cholesterol Calculated 114 mg/dL (<100); Potassium 4.7 mmol/L (3.4-5.1); Sodium 141 mmol/L (137-145); Total Protein 7.3 g/dL (6.3-8.2); Triglycerides 138 mg/dL (35-150); Uric Acid 3.1 mg/dL (3.5-8.5)
[2022-10-17 12:50] LABS: Prostate Specific Antigen 1.53 ng/mL (0.10-4.00); TSH w/ Reflex to FT4 2.15 uIU/mL (0.47-4.68)
[2022-10-17 12:53] LABS: Testosterone 214 ng/dL (71.8-623)
== END ==
PROVIDERS: PCP Internal Medicine; Referring Provider Internal Medicine; Visit Provider Internal Medicine
DX: E78.2 Mixed hyperlipidemia (principal); I10 Essential (primary) hypertension; N40.1 Benign prostatic hyperplasia with lower urinary tract symptoms; N13.8 Other obstructive and reflux uropathy; E34.9 Endocrine disorder, unspecified; M1A.9XX0 Chronic gout, unspecified, without tophus (tophi)
CPT/HCPCS: 36415; 80053; 80061; 84153; 84403; 84443; 84550; 85027

== ENCOUNTER → 2023-04-15 14:40 | Outpatient (CLI) | payer MEDICARE, OTHER, SELFPAY ==
[2019-07-27 12:19] VITALS: BMI 29.6
[2023-04-15 15:55] LABS: Hematocrit 34.4 % (41-53); Hemoglobin 11.8 g/dL (13.5-17.5); Mean Corpuscular HGB Conc 34.4 % (30-36); Mean Corpuscular Volume 95.8 fL (80-100); Platelet Count 220 X10^3/uL (150-400); Red Blood Cell Count 3.59 X10^6/uL (4.5-5.9); Red Cell Distribution Width 13.8 % (11.6-14.8); White Blood Cell Count 5.2 X10^3/uL (4.5-11.0)
[2023-04-15 16:31] LABS: Alanine Aminotransferase 36 IU/L (<50); Albumin 4.3 g/dL (3.5-5.0); Albumin Globulin Ratio 1.5 (1.0-2.8); Alkaline Phosphatase 58 U/L (38-126); Aspartate Aminotransferase 34 IU/L (17-59); BUN Creatinine Ratio 20.7 (6-22); Blood Urea Nitrogen 30 mg/dL (9-20); C-Reactive Protein Quant 0.6 mg/dL (<1.0); Carbon Dioxide 30 mmol/L (22-32); Chloride 103 mmol/L (98-107); Estimated Glomerular Filt Rate 52 mL/min (>60); Globulin 2.9 g/dL (1.7-4.1); Glucose 96 mg/dL (80-110); HEMOLYSIS < 15 (0-50); Potassium 4.8 mmol/L (3.4-5.1); Sodium 138 mmol/L (137-145); Total Protein 7.2 g/dL (6.3-8.2)
[2023-04-15 19:04] LABS: Erythrocyte Sedimentation Rate 36 MM/HR (0-15)
== END ==
PROVIDERS: PCP Internal Medicine; Referring Provider Internal Medicine; Visit Provider Internal Medicine
DX: I10 Essential (primary) hypertension (principal); M35.3 Polymyalgia rheumatica
CPT/HCPCS: 36415; 80053; 85027; 85651; 86140

== ENCOUNTER → 2023-09-12 16:46 | Outpatient (CLI) | payer MEDICARE, OTHER, SELFPAY ==
[2023-07-08 12:22] VITALS: BMI 29.6
--- NOTE | 2023-09-12 | DI.MRI.S_ITS ---
PROCEDURE: MR SHOULDER LT WO CON INDICATIONS: EVALUATE ARTHRITIS/IMPINGEMENT TECHNIQUE: Noncontrast oblique coronal T2 fast spin echo with fat saturation, oblique sagittal T1 spin echo and T2 fast spin echo with fat saturation, axial T1 spin echo and T2 fast spin echo with fat saturation through the shoulder. COMPARISON: None. FINDINGS: Image quality: Excellent. Rotator cuff: There is low to moderate grade articular and bursal surface partial thickness tear involving distal supraspinatus at its insertion on the humeral head extending to musculotendinous junction. Distal infraspinatus tendinosis is noted. Low-grade intrasubstance partial-thickness tear involving distal subscapularis is also noted. Sagittal images demonstrate moderate supraspinatus muscle atrophy. Bones and bursae: Moderate acromioclavicular joint osteoarthritic changes are seen with joint space narrowing and downward osteophyte formation depressing on musculotendinous junction of supraspinatus. Moderate to severe glenohumeral joint osteoarthritic changes also seen with near complete loss of joint space, extensive subchondral sclerosis and edema and prominent inferior marginal osteophyte formation. No fracture or dislocation. The acromion demonstrates conventional anatomy, without an os acromiale. Small to moderate amount of subacromial subdeltoid bursal fluid is seen. Capsule and soft tissues: There is extensive signal abnormality and fraying of anterior and inferior labrum extending from 12-7 o'clock position suggestive of extensive labral tear. The long head of the biceps tendon demonstrates normal location and morphology. The rotator interval appears normal, without fibrosis. The coracohumeral ligament is normal in thickness. IMPRESSION: 1. Low to moderate grade articular and bursal surface partial thickness tear involving distal supraspinatus extending to musculotendinous junction. Distal infraspinatus tendinosis. Low-grade intrasubstance partial-thickness tear involving distal subscapularis. No full-thickness rotator cuff tendon rupture. Moderate supraspinatus muscle atrophy. 2. Moderate acromioclavicular joint osteoarthritis and moderate to severe glenohumeral joint osteoarthritis. No fracture or dislocation. Small to moderate amount of joint effusion and subacromial subdeltoid bursal fluid. 3. Suggestion of extensive anterior and inferior labral tear extending from 12-7 o'clock position. Dictated by: Thor García M.D. on 09/13/2023 at 10:47 Approved by: Thor García M.D. on 09/13/2023 at 10:50
== END ==
PROVIDERS: PCP Internal Medicine; Referring Provider Orthopaedic Surgery; Visit Provider Orthopaedic Surgery
DX: M19.012 Primary osteoarthritis, left shoulder (principal); M75.112 Incomplete rotator cuff tear or rupture of left shoulder, not specified as traumatic
CPT/HCPCS: 73221

== ENCOUNTER → 2023-10-08 08:58 | Outpatient (CLI) | payer MEDICARE, OTHER, SELFPAY ==
[2023-07-08 12:22] VITALS: BMI 29.6
--- NOTE | 2023-10-08 08:59 | DI.RAD.S_ITS ---
PROCEDURE: XR LUMBAR SPINE MIN 4V INDICATIONS: BACK PAIN TECHNIQUE: 5 views of the lumbar spine were acquired, including bilateral oblique views. COMPARISON: [facility], CT, CT ANGIO CHEST PE PROTOCOL, 08/21/2021, 7:33. FINDINGS: Bones: 5 nonrib-bearing vertebrae are present. There is normal bony alignment. No vertebral body compression fractures. Anterior wedging is noted at T12 which is unchanged from the study dated August 21, 2021. No suspicious bony lesions. There is diffuse intervertebral disc space narrowing, endplate sclerosis, facet sclerosis and osteophytosis. Soft tissues: Overlying bowel gas pattern is normal. Atheromatous calcifications are present throughout the abdominal aorta. Oblique images: No pars defects. IMPRESSION: 1. Degenerative change. 2. Aortic atherosclerosis. 3. No pars interarticularis defects visualized. Dictated by: Shannon Gamboa M.D. on 10/08/2023 at 9:40 Approved by: Shannon Gamboa M.D. on 10/08/2023 at 9:42
== END ==
PROVIDERS: PCP Internal Medicine; Referring Provider Physical Medicine & Rehabilitation; Visit Provider Physical Medicine & Rehabilitation
DX: M47.27 Other spondylosis with radiculopathy, lumbosacral region (principal); M48.061 Spinal stenosis, lumbar region without neurogenic claudication; I70.0 Atherosclerosis of aorta
CPT/HCPCS: 72110

== ENCOUNTER → 2023-10-21 11:49 | Outpatient (CLI) | payer MEDICARE, OTHER, SELFPAY ==
[2023-07-08 12:22] VITALS: BMI 29.6
[2023-10-21 12:47] LABS: Aspartate Aminotransferase 26 IU/L (17-59); BUN Creatinine Ratio 35.4 (6-22); Blood Urea Nitrogen 58 mg/dL (9-20); Calcium 10.2 mg/dL (8.4-10.2); Carbon Dioxide 22 mmol/L (22-32); Chloride 104 mmol/L (98-107); Cholesterol 181 mg/dL (140-199); Estimated Glomerular Filt Rate 44 mL/min (>60); Glucose 95 mg/dL (80-110); HDL Cholesterol 34 mg/dL (40-60); HEMOLYSIS < 15 (0-50); LDL Cholesterol Calculated 112 mg/dL (<100); Potassium 5.2 mmol/L (3.4-5.1); Sodium 137 mmol/L (137-145); Triglycerides 177 mg/dL (35-150)
[2023-10-21 13:16] LABS: Prostate Specific Antigen 2.09 ng/mL (0.10-4.00)
[2023-10-21 13:19] LABS: Testosterone 320 ng/dL (71.8-623)
== END ==
PROVIDERS: PCP Internal Medicine; Referring Provider Internal Medicine; Visit Provider Internal Medicine
DX: R79.89 Other specified abnormal findings of blood chemistry (principal); N40.1 Benign prostatic hyperplasia with lower urinary tract symptoms; E78.2 Mixed hyperlipidemia; I10 Essential (primary) hypertension; N13.8 Other obstructive and reflux uropathy
CPT/HCPCS: 36415; 80048; 80061; 84153; 84403; 84450

== ENCOUNTER 2023-10-22 13:28 | Outpatient (CLI) | payer MEDICARE, OTHER, SELFPAY ==
[2023-07-08 12:22] VITALS: BMI 29.6
[2023-10-22] VITALS (12 sets, daily range): BP systolic 87–103; BP diastolic 44–57; PULSE 60–66; RESP 12–19; TEMP 36.2; O2SAT 94–100
--- NOTE | 2023-10-22 14:00 | DI.RAD.S_ITS ---
PROCEDURE: PAIN L/S TRANSFORAM INJECT TOO COMPARISON: None. INDICATIONS: stenosis FINDINGS: Fluoroscopic spot filming was performed to verify placement of spinal needles at the right L4-5 level(s). This appears to be mislabeled on the film. Appropriate location(s) of the needle tip(s) was confirmed by injection of iodinated contrast. IMPRESSION: Intraoperative fluoroscopy for transforaminal steroid injection at right L4-5. Dictated by: Lissy Morales M.D. on 10/22/2023 at 23:52 Approved by: Lissy Morales M.D. on 10/22/2023 at 23:53
[2023-10-22] MEDS: MIDAZOLAM 2 MG/2 ML VIAL IV (14:42)
[2023-10-22] MEDS: iopamidoL 15 ML VIAL 3 ML INJ (14:45)
[2023-10-22] MEDS: BUPIVACAINE 0.25% (PF) VIAL 2 ML INJ (14:46)
[2023-10-22] MEDS: BETAMETHASONE 30 MG/5 ML MDV 6 MG INJ (14:46)
[2023-10-22] MEDS: DEXAMETHASONE 10 MG/ML VIAL INJ (14:46)
--- NOTE | 2023-10-22 15:07 | P.PCN_ITS ---
Date/Time/Diagnoses Date of procedure: 10/22/23 Time of procedure: 15:07 Pre-procedure diagnosis: 1. FORAMINAL STENOSIS WITH LE SYMPTOMS Post-procedure diagnosis: same Procedure Notes Procedure: 1. FLUOROSCOPICALLY GUIDED CONTRAST CONTROLLED TRANSFORAMINAL EPIDURAL STEROID INJECTION - RIGHT L4/5 TFESI Indications: Jose De Jesus is referred by Dr.s' Barnes and Deangelo for treatment of Foraminal Stenosis with Right LE Symptoms Physician: Primitivo Lynn Total Fluoroscopy time (seconds): 18 Total sedation minutes: 20 Complications: none Procedure in detail & Post-procedure care: FINDINGS Foraminal Nerve Root Compression secondary to disc disease and facet hypertrophy DESCRIPTION OF PROCEDURE Following review of allergy and review of potential side effects and complications, including, but not necessarily limited to, infection, allergic reaction, local tissue breakdown, stroke, temporary or permanent nerve injury, paralysis, and possible , the patient indicated that the patient understood and agreed to proceed. An informed consent document was signed by the patient, witnessed by a nurse, and placed in the patient's chart. Additionally, other treatment options including medications, modalities, and physical therapy were reviewed with the patient. After review of previous anaesthesic history and IV conscious sedation the patient was deemed safe to proceed with today?s procedure with IV conscious sedation as ASA class II designation. Safety time-out was performed to confirm patient ID, procedure to be performed and site of procedure. IV sedation was accomplished with a combination of 2mg of Versed was administered by the RN after DO order, titrated to patient comfort during the course of the procedure while the patient remained responsive to all verbal commands In the prone position following sterile prep and drape of the lumbar region, the right L4/5 posterior neuroforamen was identified fluoroscopically. The skin was anesthetized via a 25-gauge 1.5-inch needle with 1% lidocaine solution. At this point, a 25-gauge 3.5-inch spinal needle was atraumatically introduced and advanced under fluoroscopic guidance through the posterior right L4/5 neuro foramen to approximately the anterior aspect of the canal. Depth was confirmed on lateral view. Following negative aspiration, injection of approximately 1.5cc of Isovue 200 under live fluoroscopy in the AP view confirmed excellent flow along the nerve root, into the epidural space without vascular or intrathecal uptake observed Radiological data, including multiple fluoroscopic views of the lumbosacral spine, reveal a spinal needle at the right L4/5 posterior neuroforamen. Subsequent views show flow of contrast material flowing superiorly and inferiorly along the nerve root confirming epidural flow. Subsequently, a test dose of 1.5 cc of 1% lidocaine solution was administered and patient was observed for two minutes for signs or symptoms of complications, including abdominal pain, shortness of breath, bilateral upper or lower extremity weakness, nausea and vomiting, prior to steroid injection. At this point, a total of 3cc or 10mg of dexamethasone and 12mg of betamethasone was injected without incident. The procedure tolerated the procedure well without signs or symptoms of complications prior to transfer to the recovery area continued monitoring without incident. The patient was then transferred to the recovery area where they were observed for an appropriate time after the injection. The patient reported a VAS score of 8 prior to the procedure and a post-proc edure VAS of 2. POST OP INSTRUCTIONS The patient was provided a Pain Log to continue to record their response to the target-specific procedure prior to follow-up visit with their referring physician. Additionally, specific post-injection care instructions and a contact number to our office were provided if concerns arise regarding possible complications associated with the procedure are suspected.
--- NOTE | 2023-10-22 15:57 | PC.NURSE ---
Patient with some initial weakness post injection. Held onto for an extended amount of time until weakness resolved. Patient up with SBA, able to take multiple steps without difficulty. Dr. Shane evans for discharge.
== END 2023-10-22 15:50 | disposition home or self-care (01) ==
LOC: RAD 13:28
PROVIDERS: PCP Internal Medicine; Referring Provider Physical Medicine & Rehabilitation; Visit Provider Physical Medicine & Rehabilitation
DX: M48.061 Spinal stenosis, lumbar region without neurogenic claudication; M51.16 Intervertebral disc disorders with radiculopathy, lumbar region; M47.26 Other spondylosis with radiculopathy, lumbar region
CPT/HCPCS: 64483; 99152; J0702; J1100; J2250; J3490